=== PATIENT | male | born 1950 | race Caucasian/White ===

== ENCOUNTER → 2018-12-25 11:46 | Outpatient (CLI) | payer MEDICARE, OTHER, SELFPAY ==
--- NOTE | 2018-12-25 11:51 | DI.US.S_ITS ---
PROCEDURE: US ABDOMEN LIMITED INDICATIONS: LEFT INGUINAL PAIN TECHNIQUE: Real-time focused scanning was performed of the inguinal region, with image documentation. COMPARISON: None. FINDINGS: There is a partially reducible fat-containing left inguinal hernia. No findings to suggest bowel herniation. IMPRESSION: Partially reducible fat-containing left inguinal hernia. Dictated by: Rhoda Denney M.D. on 12/25/2018 at 14:35 Approved by: Rhoda Denney M.D. on 12/25/2018 at 14:36
--- NOTE | 2018-12-25 11:51 | DI.US.S_ITS ---
PROCEDURE: US SCROTUM INDICATIONS: EVALUATE FOR HYDROCELE TECHNIQUE: Real-time scanning was performed of the scrotum and testicles, with image documentation. Color and pulse Doppler interrogation was performed of both testicles. COMPARISON: None. FINDINGS: Right: Testicle is normal in size at 5.1 x 3 x 2.9 cm, and homogenous in echotexture. Epididymis is normal in overall size and morphology. There is a mild right-sided hydrocele. A small right-sided varicocele is seen. Overlying scrotal skin is normal in thickness. Left: Testicle is normal in size at 4.6 x 2.8 x 2.5 cm, and homogeneous in echotexture. Epididymis is normal in overall size. There is a 3 mm epididymal body cyst seen. There is a mild left-sided hydrocele and a small left-sided varicocele seen. Mild echogenic debris can be seen within the hydrocele. Overlying scrotal skin is normal in thickness. Doppler: Color and pulse Doppler demonstrate normal and symmetric arterial flow in both testicles. IMPRESSION: A cause of left scrotal swelling is not identified. No significant testicular abnormality can be seen. Mild bilateral hydroceles are seen. Small bilateral varicoceles are seen. Dictated by: Florian Toscano M.D. on 12/26/2018 at 16:04 Approved by: Florian Toscano M.D. on 12/26/2018 at 16:06
== END ==
PROVIDERS: Family Provider Family Medicine; PCP Family Medicine; Visit Provider Surgery
DX: R10.32 Left lower quadrant pain (principal); K40.90 Unilateral inguinal hernia, without obstruction or gangrene, not specified as recurrent; N43.3 Hydrocele, unspecified; I86.1 Scrotal varices
CPT/HCPCS: 76705; 76870; 99214

== ENCOUNTER 2019-01-10 13:00 | Day surgery (SDC) | payer MEDICARE, OTHER, SELFPAY ==
[2019-01-02 13:52] VITALS: BMI 32.6
[2019-01-10] VITALS (7 sets, daily range): BP systolic 123–156; BP diastolic 74–91; PULSE 56–83; RESP 12–18; TEMP 36.4–36.6; O2SAT 93–98; BMI 32.6
--- NOTE | 2019-01-10 | PATH_ITS ---
[facility] Accession Number: [id number] . 01 Material submitted: . scrotum - SCROTAL MASS . 01 Diagnosis: Scrotal Mass, Excision: Mature adipose tissue with fat necrosis and hematoma; please see comment. No evidence of malignancy. MRV/01/17/2019 . 01 Comment: Sections are of mature adipose tissue with areas of fat necrosis and multifocal areas of hematoma, suggestive of prior trauma. A few fibrous bands are present around the periphery and traversing the lesion; however, the stromal spindle cells have no significant nuclear atypia or mitotic activity. Overall, the histologic features are most consistent with a lipoma; however, given the presence of fibrous bands and the large size of the lesion, FISH studies for MDM2 are pending to exclude the less likely possibility of an atypical lipomatous tumor. When available, results will be issued in an addendum. . As part of routine manager quality, Dr. Tillman has reviewed this case and agrees with the above interpretation. . 01 Electronically signed: . Nguyễn Jean MD, PhD, Pathologist NPI- [id number] . 01 Gross description: . Received in formalin, labeled scrotal mass, is a piece of esqueda-yellow rubbery adipose tissue (6.5 x 6.2 x 2.3 cm) with an irregularly firm and hemorrhagic area (4.4 x 2.5 x 1.6 cm). The tissue is inked blue. Administrative Support Manager tissue submitted in cassettes A1-A6. ([id number]) /MRV . 01 Pathologist provided ICD-10: D17.9 . 01 CPT . 915278 Performed at: [address] [facility] [address], [place], [place] [id number] MD Low Higginbotham MD Phone: [phone]
[2019-01-10] MEDS: LACTATED RINGERS 1,000 ML 42 ML IV ×2 (13:50→16:26)
[2019-01-10] MEDS: CEFAZOLIN 2 GM/100 ML FROZ.PIGGY IV (15:05)
--- NOTE | 2019-01-10 15:05 | PM.HP.1 ---
History of Present Illness Date Patient Seen: 01/10/19 Time Patient Seen: 15:05 Chief complaint: [id number] Narrative: Pt seen and examined unchanged since recent clinic note umbilical hernia repair + L inginal repair + L hydroceal repair Patient History Medical History (Updated 01/07/19 @ 09:46 by Lara Elizabeth RN) Diverticulosis (Acute) GERD (gastroesophageal reflux disease) (Acute) Gout (Acute) Hypoglycemia (Acute) Surgical History (Updated 01/07/19 @ 09:49 by Lara Elizabeth RN) History of surgery (Acute 12/23/17) Hx of bilateral cataract extraction (Acute ~2017) Hx of knee surgery (Resolved 02/07/17) Family History (Updated 12/25/18 @ 09:39 by Nathaly Naidu RN) Mother Hypertension Sister Hypertension Brother Hypertension Social History (Updated 12/25/18 @ 09:40 by Nathaly Naidu RN) household members: none occupational status: previously employed Smoking Status: Never smoker alcohol intake: former substance use type: does not use Family & Social History Family History (Updated 12/25/18 @ 09:39 by Nathaly Naidu RN) Mother Hypertension Sister Hypertension Brother Hypertension Social History: household members none Tobacco & Substance use: Smoking Status Never smoker alcohol intake former Substance Use Type does not use Meds Home Medications Medication Instructions Recorded Confirmed Type L.acidophilus-B.infantis-B.bifidum-B.animalis 1 cap PO DAILY 12/25/18 01/10/19 History 5 billion cell capsule ascorbate calcium (vitamin C) 500 500 mg PO DAILY 12/25/18 01/10/19 History mg tablet aspirin 81 mg tablet,delayed 81 mg PO DAILY 12/25/18 01/10/19 History release atenolol 25 mg tablet 25 mg PO DAILY 12/25/18 01/10/19 History colchicine 0.6 mg tablet 1.2 mg PO DAILY 12/25/18 01/10/19 History multivitamin capsule 1 cap PO DAILY 12/25/18 01/10/19 History Allergies Allergy/AdvReac Type Severity Reaction Status Date / Time Penicillins [PENICILLINS] Allergy Unknown hives Verified 01/10/19 13:39 Exam Vital Signs (past 8 hours): - 01/10/19 13:45 Temperature 97.9 F Pulse Rate 56 L Respiratory Rate 16 Blood Pressure 156/91 H Pulse Oximetry 98 Oxygen Delivery Method Room Air
--- NOTE | 2019-01-10 15:36 | SUR.OPER ---
Supine on padded OR bed, head on pillow, arms secured on padded arm boards at <90 degrees abduction, legs uncrossed, safety belt at thigh, tape over blanket over lower legs. Gel pad under heels.
[2019-01-10] MEDS: VANCOMYCIN 1,000 MG VIAL 1000 MG TOP (15:56)
[2019-01-10] MEDS: BUPIVACAINE 0.25% W/ EPI 30 ML VIAL INJ (15:56)
[2019-01-10] MEDS: HYDROMORPHONE 2 MG INJ 0.5 MG IV ×4 (18:25→18:40)
[2019-01-10] MEDS: OXYCODONE/ACETAMINOPHEN 5/325 TABLET 1 TAB PO (18:42)
--- NOTE | 2019-01-10 19:02 | P.OP_ITS ---
Operative Date/Time/Diagnoses Date of procedure: 01/10/19 Time of procedure: 18:59 Pre-op diagnosis: Umbilical hernia, Left inguinal hernia, left hydrocele Post-op diagnosis: other (Umbilical hernia, left large indirect inguinal hernia -with extensive herniation of preperitoneal fat, left scrotal mass, no hydrocele) Procedure & Clinicians Procedure: Umbilical hernia repair with mesh -mesh placed in preperitoneal space Left inguinal hernia repair -anterior mesh repair/Srinath Transinguinal excision of left scrotal mass Same procedure as scheduled: No Indications: 68-year-old man presents with bulging in left scrotum. First developed paresthesias on the left inguinal crease 4-5 months ago. Subjectively felt as if nerve was being pinched with development of moderately large bulge in area. Groin and scrotal US demonstrated inguinal hernia and hydrocele within the left hemiscrotum. Consequently he was taken to the operating room for repair both. In addition he was found to have a 2 x 2 cm umbilical hernia with plans to repair this. Surgeon: Yobany Lopez Click Yes if Unassisted: Yes Anesthesia Type: General Operative Notes Findings: Preperitoneal fat herniated through 2 x 2 cm umbilical defect - transversely closed, mesh placed in preperitoneal space Large indirect inguinal hernia with nearly a entire inguinal floor blown apart - extensive herniation of preperitoneal fat without true hernia sac. Within this fat was a 3 by 3 cm hard nodular mass. Mass distinct from left testicle -imbedded in herniated preperitoneal fat Inguinal floor repaired with suture and buttressed with anterior Srinath type polypropylene mesh repair, majority of preperitoneal fat ligated and removed Closure Type: primary Specimen(s): other (Left scrotal mass) Estimated Blood Loss (mL): 10 Blood products transfused: none Procedure in detail: Patient was brought to the operating room he was prepped and draped in usual sterile fashion a time-out was completed. The entire scrotum and penis were fully prepped but isolated from the main sterile field via a towel. This allowed access if needed -ultimately it was not needed. The procedure was begun by doing an umbilical hernia repair. A curvilinear incision was carried through the skin and subcutaneous tissues at the superior umbilical crown. The umbilical stalk was bluntly dissected around with a curved clamp and then detached from underlying structures. The 2 x 2 cm hernia defect was readily identified. The edge of this was grasped with an Allis clamp and elevated. I carefully entered the preperitoneal space using primarily Bovie dissection. And then opened the preperitoneal space circumferentially around the hernia defect. At no time was the actual peritoneal cavity entered. Using a finger I dissected out a pocket measuring approximately 5 x 5 cm within the preperitoneal space. Next the attenuated fascia at the umbilical ring was excised back to healthy fascia. A Ray-Ross was then placed into the preperitoneal space left for a minute and then removed there was very minimal bleeding confirming hemostasis. Two 0 PDS sutures were then placed at the right and left apex of the hernia defect elevating and pulled to elevate the fascia -a 4.3 x 4.3 cm piece of polypropylene c.qur mesh was then inserted into the preperitoneal space. I ensured that it was fully on rolled without wrinkling. The fascial defect was then closed transversely using interrupted 0 PDS suture in a simple fashion. The central stitch caught the underlying mesh in its middle to prevent migration. The umbilical stalk was then reapproximated to the deep fascia. Skin was closed using 2 layers of 2 0 Vicryl followed by running subcuticular suture of monofilament absorbable suture Then proceeded to the inguinal region -on the left side AA obliquely oriented incision was placed 2 finger breaths above the a inguinal ligament. This is was carried through the skin subcutaneous tissues through Tom's fascia until the aponeurosis of the external oblique was encountered. The inguinal canal was readily identified there was a large amount of hernia contents bulging through. The aponeurosis of the external oblique was then stripped of the overlying subcutaneous tissue -it was noted that a large wad of fatty material was exiting the external ring. Local anesthetic was infiltrated into the inguinal canal to hydro dissect tissue planes -a scalpel was utilized to split the fibers of the external oblique and then a Metzenbaum was used to carry this incision for the full length of the inguinal canal opening medially through the external ring. A large amount of fatty hernia contents was identified this was bluntly dissected off of the inguinal floor and encircled with a Tl drain, it was clear that this constituted a very large indirect hernia defect. I then procee ded to to identify the hernia sac-I progressively in carefully dissected through these herniated contents identifying the vas deferens and spermatic vessels and keeping these well preserved. Ultimately in the course of this the entire contents of the hernia was reduced out of the scrotum. I initially felt that I had likely brought the testicle up into the operative field as a felt a testicle size mass within the fighting contents of the hernia contents. However I distinctly noticed that the vas deferens and spermatic vessels did not lead to this mass but rather deep into the scrotum -I follow these vessels and identified the true testicle in the anatomic location in the left hemiscrotum. I confirmed the presence of the right testicle in the anatomic location as well. With this in mind day more carefully inspected the scrotal mass -it was hard and nodular obviously distinct from the testicle. It may have constitute a piece of fibrous ischemic fat. Nevertheless I it with its adjacent fatty tissue from the dissection plane and sent for pathology. After the spermatic cord and spermatic vessels from the fatty contents -I determined that the large herniated fatty contents likely constituted a sizable amount of herniated preperitoneal fat. I then proceeded to carefully clamp across this contents amputating it from near the location where it exited from the internal ring. These clamps were then ligated with 0 Vicryl. This allowed the remaining stub of fibrofatty tissue to be reduced without difficulty through the internal ring leaving the skeletonized spermatic vessels and vas deference and some residual cremaster fibers exiting through the internal ring. I then proceeded to reconstruct the inguinal floor utilizing a running 2 0 Vicryl suture essentially buttressing the transversalis muscles in the course of this I snugged the internal ring so that the reduced fatty contents would not reherniation during the course of placing the mesh. I then proceeded to place regular weight polypropylene mesh within the space deep to the aponeurosis of the external oblique and superficial to the conjoint tendon -lateral tails were produced to wrap around the cord structure. The medial aspect of the mesh was then sutured to the pubic tubercle utilizing 2 0 Prolene with over 1 cm of medial overlap. The shelving edge was then ran the utilizing the suture to well lateral of the internal ring. The lateral tails encircled the ring snugly but not unduly tight and sutured to themselves using horizontal mattress suture x2 of 0 Prolene. The superior edge of mesh was then sutured with PDS interrupted sutures x3 to the conjoint tendon -these were tied with an air knot so as to not encircle tightly any nerves. The mesh was inspected found to be not unduly wrinkled. Vancomycin laced irrigation was then used copiously. Local anesthetic was infiltrated into the tissue plans. Then proceeded to close external oblique aponeurosis over the repair utilizing 2 0 Vicryl suture. Several interrupted Vicryl sutures were used to reapproximate Tom's fascia. Skin was then closed using 2 layers 1 of 2 0 Vicryl suture deep dermal interrupted some as well as running subcuticular absorbable suture. Skin glue was applied to all wounds The patient was extubated and brought to PACU without incident Complications: none Condition: stable Disposition: PACU Plan for aftercare: Discharge home follow-up in the office
--- NOTE | 2019-01-10 19:51 | SUR.PHASEII ---
patient up ambulatory in department, tolerating acitivity without increased pain. instructions reviewed with patient and sister.
== END 2019-01-10 18:46 | disposition home or self-care (01) ==
PROVIDERS: PCP Family Medicine; Visit Provider Surgery
PROC: (CPT 49505; principal; 2019-01-10 14:30)
PROC: (CPT 49505; 2019-01-10 14:30)
DX: K42.9 Umbilical hernia without obstruction or gangrene (principal); K40.30 Unilateral inguinal hernia, with obstruction, without gangrene, not specified as recurrent
CPT/HCPCS: 49505; 49585; 88305; C1781; J0330; J0690; J1100; J1170; J2405; J2704; J3010

== ENCOUNTER → 2019-01-14 13:56 | Outpatient (CLI) | payer MEDICARE, OTHER, SELFPAY ==
--- NOTE | 2019-01-14 | DI.RAD.S_ITS ---
PROCEDURE: XR SHOULDER LT MIN 2V INDICATIONS: PAIN/SHOULDER IMINGEMENT SYNDROME TECHNIQUE: 3 views of the shoulder were acquired. COMPARISON: None. FINDINGS: Bones: No fractures or dislocations. No suspicious bony lesions. Visualized ribs appear intact. Soft tissues: No suspicious soft tissue calcifications. IMPRESSION: No acute osseous abnormality of the left shoulder. Dictated by: Jayme Booker M.D. on 01/14/2019 at 15:19 Approved by: Jayme Booker M.D. on 01/14/2019 at 15:21
--- NOTE | 2019-01-14 | DI.RAD.S_ITS ---
PROCEDURE: XR SHOULDER RT MIN 2V INDICATIONS: PAIN/SHOULDER IMINGEMENT SYNDROME TECHNIQUE: 3 views of the shoulder were acquired. COMPARISON: [facility], CR, XR SHOULDER LT MIN 2V, 01/14/2019, 13:59. FINDINGS: Bones: No fractures or dislocations. No suspicious bony lesions. Visualized ribs appear intact. Soft tissues: No suspicious soft tissue calcifications. IMPRESSION: No acute osseous abnormality of the right shoulder. Dictated by: Jayme Booker M.D. on 01/14/2019 at 15:21 Approved by: Jayme Booker M.D. on 01/14/2019 at 15:22
== END ==
PROVIDERS: PCP Family Medicine; Visit Provider Family Medicine
DX: M75.41 Impingement syndrome of right shoulder (principal); M75.42 Impingement syndrome of left shoulder; M25.512 Pain in left shoulder; M25.511 Pain in right shoulder
CPT/HCPCS: 73030

== ENCOUNTER 2019-02-22 12:00 | Outpatient (RCR) | payer MEDICARE, OTHER, SELFPAY ==
--- NOTE | 2019-02-08 17:00 | PT.OIE ---
Current Diagnoses Benign paroxysmal vertigo, left ear (02/08/19) Dizziness and giddiness (02/08/19) Past Medical History (Last Updated 01/07/19 @ 09:46 by Lara Elizabeth RN) Diverticulosis (Acute) GERD (gastroesophageal reflux disease) (Acute) Gout (Acute) Hypoglycemia (Acute) Past Surgical History (Last Updated 01/07/19 @ 09:49 by Lara Elizabeth RN) History of surgery (Acute 12/23/17) Hx of bilateral cataract extraction (Acute ~2016) Hx of knee surgery (Resolved 02/07/17) Visit Care Team Role Provider Type Cordell Schmitz MD Attending Provider Physician Primary Care Provider Specialty: [facility] Address: [address] [place] [address] [place], [facility] Email: [email or web address] [facility] Initial Evaluation PT-OP-A Visit Information Start: 02/08/19 15:48 Freq: Status: Active Protocol: Document 02/08/19 14:50 DCW (Rec: 02/08/19 16:00 DCW [id number]) Out-Patient Physical Therapy Visit Information Visit Information Visit Type Initial Evaluation Visit Start Time 14:50 Visit Stop Time 15:40 Total Visit Minutes 50 Visit Number 1 Number of COLLECTIONS ASSISTANT Visits 0 Evaluation Information Evaluation Date 02/08/19 PT-OP-B Current Condition Start: 02/08/19 15:48 Freq: Status: Active Protocol: Document 02/08/19 14:50 DCW (Rec: 02/08/19 16:00 DCW [id number]) Current Condition History of Current Condition Onset Date 3 weeks Current Complaints position-dependent vertigo History of Current Condition Pt is a 68 year old male complaining of a three week history of motion-induced vertigo and generalized, low- level imbalance. Pt reports episodes last about a minute. Symptoms are provoked by bending forward, rolling over in bed to the left, and sudden movements. Pt reports he has done research online, and tried to do an Ford maneuver on himself, but that just made it worse. Pt notes that he had similar symptoms six years ago, which seemed to eventually go away on its own , but he doesn't want to wait that long again. Pt denies recent hearing changes, tinnitus, diplopia, dysarthria , discoordination, or decreased mentation/ consciousness. Pt reports symptoms are waxing/waning in nature. Pt denies hx of hyperlipidemia, diabetes, arrhythmia, head trauma, seizure, migraines, back/neck problems, CVA, anxiety/panic disorders, or excessive smoking. 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 Treatment Goals Patient/Caregiver Goals Stop this dizziness before it gets worse. PT-OP-C Subjective Start: 02/08/19 15:48 Freq: Status: Active Protocol: Document 02/08/19 14:50 DCW (Rec: 02/08/19 16:00 DCW [id number]) OP-PT Subjective Patient Comments Patient Comments I've tried to do the Ford maneuver I found online, but it isn't working. I think I made it worse. Patient Reported Progress Worse Patient Questionnaires Dizziness Handicap Inventory DHI Score 56% DHI Functional Impairment 40 to 59% Impaired (Score 40- 59) OP-PT Pain Assessment Pain Assessment Grid Paper Pain Assessment Grid Completed Yes: N/A PT-OP-O Vestibular Start: 02/08/19 15:48 Freq: Status: Active Protocol: Document 02/08/19 14:50 DCW (Rec: 02/08/19 16:00 DCW [id number]) Vestibular Assessment Screening Tests Vestibular Artery Screen Negative Auditory Tests Carter Test Negative Rinne Test Negative Air Conduction Results Equal Visual Testing Smooth Pursuits Horizontal WNL Smooth Pursuits Vertical WNL Saccades Horizontal WNL Saccades Vertical WNL Gaze Evoked Nystagmus With Fixation Negative Gaze Evoked Nystagmus Without Fixation Negative Heave Test Positive Bilateral Thrust Head Positive Bilateral Head Shake Negative Spontaneous Nystagmus Negative Positional Testing Toi-Hallpike Negative Left,Negative Right Rolling Test Negative Left,Negative Right Supine to Sit Negative Sit to Supine Negative Comments Vestibular Comments Thrust/Heave tests mildly positive bilaterally. PT-OP-Q Treatments Start: 02/08/19 15:48 Freq: Status: Active Protocol: Document 02/08/19 14:50 DCW (Rec: 02/08/19 16:59 DCW [id number]) Canalithic Repositioning BPPV Treatment Ford Affected Canal(s) L Posterior? Reps x1 PT-OP-T Assessment and Plan Start: 02/08/19 15:48 Freq: Status: Active Protocol: Document 02/08/19 14:50 DCW (Rec: 02/08/19 16:59 DCW [id number]) Physical Therapy Assessment Rehab Potential Rehabilitation Potential Excellent Evaluation Complexity Number of Personal Factors/Comorbidities 1-2 Number of Body Systems Impaired 1-2 Clinical Presentation at Evaluation Unstable Impairments Impairments Balance,Vestibular Goals Two Impairment Pt scores a 56% on DHI Short Term Goal (STG) Pt to score <20% on DHI to indicate objective decrease in symptoms STG Duration 03/11/19 One Impairment Dizziness with position change Short Term Goal (STG) Pt to be able to roll onto his left side in bed without vertigo STG Duration 03/11/19 Assessment Summary Assessment Pt's vestibular assessment was entirely negative, with the exception of a mildly bilaterally positive thrust and heave test, which is likely associated with age- related vestibular loss. Pt's history, however, is strongly suggestive of left-sided BPPV. Despite pt's reports of attempting an Ford maneuver at home and experiencing a worsening of symptoms, when pt demonstrated his technique, it was clear he was actually just repeatedly performing a [place]-Hallpike on himself. Due to the waxing/waning nature of BPPV, it is very possible he in fact does have BPPV, and is just not displaying symptoms at this time. With pt's complaints of worsening symptoms when rolling to the left, and the fact that posterior canal BPPV is much more common than any other canal, a left-sided Ford maneuver was performed, which hopefully will treat pt's symptoms, however he will likely benefit from further testing. Pt was educated on BPPV, expectations for treatment, possible recurrence (BPPV has a ~50% recurrence rate in the five years following treatment), and post -Ford restrictions. Pt to return in ~1 week for a follow -up appointment, and intermittently afterward as indicated for treatment of BPPV. Physical Therapy Plan Frequency and Duration Frequency of Treatment as indicated Duration of Treatment 6 weeks Plan of Care Start Date 02/08/19 Plan of Care End Date 03/22/19 Therapeutic Interventions Therapeutic Interventions Balance Training,Canalithic Repositioning,Vestibular Rehabilitation Next Visit Focus/Plan Next Note Type Treatment Note Next Visit Plan Position testing, CRM as indicated, further balance testing as needed
--- NOTE | 2019-02-08 17:00 | PT.OPPOC ---
Current Diagnoses Benign paroxysmal vertigo, left ear (02/08/19) Dizziness and giddiness (02/08/19) Visit Care Team Role Provider Type Cordell Schmitz MD Attending Provider Physician Primary Care Provider Specialty: Family Practice Address: [address] [place] [address], [address], [place], [address] Email: [email or web address] Plan Of Care PT-OP-T Assessment and Plan Start: 02/08/19 15:48 Freq: Status: Active Protocol: Document 02/08/19 14:50 DCW (Rec: 02/08/19 16:59 DCW [id number]) Physical Therapy Assessment Rehab Potential Rehabilitation Potential Excellent Evaluation Complexity Number of Personal Factors/Comorbidities 1-2 Number of Body Systems Impaired 1-2 Clinical Presentation at Evaluation Unstable Impairments Impairments Balance,Vestibular Goals Two Impairment Pt scores a 56% on DHI Short Term Goal (STG) Pt to score <20% on DHI to indicate objective decrease in symptoms STG Duration 03/11/19 One Impairment Dizziness with position change Short Term Goal (STG) Pt to be able to roll onto his left side in bed without vertigo STG Duration 03/11/19 Assessment Summary Assessment Pt's vestibular assessment was entirely negative, with the exception of a mildly bilaterally positive thrust and heave test, which is likely associated with age- related vestibular loss. Pt's history, however, is strongly suggestive of left-sided BPPV. Despite pt's reports of attempting an Ford maneuver at home and experiencing a worsening of symptoms, when pt demonstrated his technique, it was clear he was actually just repeatedly performing a Toi-Hallpike on himself. Due to the waxing/waning nature of BPPV, it is very possible he in fact does have BPPV, and is just not displaying symptoms at this time. With pt's complaints of worsening symptoms when rolling to the left, and the fact that posterior canal BPPV is much more common than any other canal, a left-sided Ford maneuver was performed, which hopefully will treat pt's symptoms, however he will likely benefit from further testing. Pt was educated on BPPV, expectations for treatment, possible recurrence (BPPV has a ~50% recurrence rate in the five years following treatment), and post -Ford restrictions. Pt to return in ~1 week for a follow -up appointment, and intermittently afterward as indicated for treatment of BPPV. Physical Therapy Plan Frequency and Duration Frequency of Treatment as indicated Duration of Treatment 6 weeks Plan of Care Start Date 02/08/19 Plan of Care End Date 03/22/19 Therapeutic Interventions Therapeutic Interventions Balance Training,Canalithic Repositioning,Vestibular Rehabilitation Next Visit Focus/Plan Next Note Type Treatment Note Next Visit Plan Position testing, CRM as indicated, further balance testing as needed Plan of Care Dates Plan of Care Start Date 02/08/19 Plan of Care End Date 03/22/19 Please Sign and Return: I have reviewed this Plan of Care and certify that the skilled therapy services above are required to meet the patient?s needs. Physician Signature Date Printed Name and Credentials Clinical Instructor Signature Printed Name and Credentials
--- NOTE | 2019-02-22 12:20 | PT.OTN ---
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 Pt reports episodes last about a minute. Symptoms are provoked by bending forward, rolling over in bed to the left, and sudden movements. Pt reports he has done research online, and tried to do an Ford maneuver on himself, but that just made it worse. Pt notes that he had similar symproms six years ago, which seemed to eventually go away on its own , but he doesn't want to wait that long again. Pt denies recent hearing changes, tinnitus, diplopia, dysarthria , discoordination, or decreased mentation/ consciousness. Pt reports symptoms are waxing/waning in nature. Pt denies hx of hyperlipidemia, diabetes, arrhythmia, head trauma, seizure, migraines, back/neck problems, CVA, anxiety/panic disorders, or excessive smoking. 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 Treatment Goals Patient/Caregiver Goals Stop this dizziness before it gets worse. PT-OP-C Subjective Start: 02/08/19 15:48 Freq: Status: Active Protocol: Document 02/22/19 12:00 DCW (Rec: 02/22/19 12:19 DCW [id number]) OP-PT Subjective Patient Comments Patient Comments I still got just a little bit , but it's so close to being gone. I'd say I'm at 98%. PT-OP-O Vestibular Start: 02/08/19 15:48 Freq: Status: Active Protocol: Document 02/22/19 12:00 DCW (Rec: 02/22/19 12:19 DCW [id number]) Vestibular Assessment Positional Testing Toi-Hallpike Negative Left,Negative Right Rolling Test Negative Left,Negative Right Supine to Sit Negative Sit to Supine Negative PT-OP-Q Treatments Start: 02/08/19 15:48 Freq: Status: Active Protocol: Document 02/22/19 12:00 DCW (Rec: 02/22/19 12:19 DCW [id number]) Canalithic Repositioning BPPV Treatment Ford Affected Canal(s) L Posterior? Reps x1 PT-OP-T Assessment and Plan Start: 02/08/19 15:48 Freq: Status: Active Protocol: Document 02/22/19 12:00 DCW (Rec: 02/22/19 12:19 DCW [id number]) Physical Therapy Assessment Impairments Impairments Balance,Vestibular Goals Two Impairment Pt scores a 56% on DHI Short Term Goal (STG) Pt to score <20% on DHI to indicate objective decrease in symptoms STG Duration 03/11/19 One Impairment Dizziness with position change Short Term Goal (STG) Pt to be able to roll onto his left side in bed without vertigo STG Duration Met Assessment Summary Assessment Pt positional testing once again entirely negative. With pt reports of feeling 98% better, as well as his comfort performing a self-Ford with and symptoms, pt will likely be okay to discharge at this time, however therapist and patient decided to leave pt's chart open for one month in case symptoms change or worsen , pt then instructed to schedule a follow-up visit. If pt has not returned within one month, he will be discharged. Physical Therapy Plan Frequency and Duration Frequency of Treatment as indicated Duration of Treatment 6 weeks Plan of Care Start Date 02/08/19 Plan of Care End Date 03/22/19 Therapeutic Interventions Therapeutic Interventions Balance Training,Canalithic Repositioning,Vestibular Rehabilitation Next Visit Focus/Plan Next Note Type Treatment Note Next Visit Plan Position testing, CRM as indicated, further balance testing as needed
--- NOTE | 2019-04-02 15:14 | PT.OPDS ---
Current Diagnoses Benign paroxysmal vertigo, left ear (02/22/19) Visit Care Team Role Provider Type Cordell Schmitz MD Attending Provider Physician Primary Care Provider Specialty: [facility] Address: [address] [place] [address], [address], [place], [place], [facility] Email: [email or web address] Visit Number Visit Number 2 Discharge Summary PT-OP-B Current Condition Start: 02/08/19 15:48 Freq: Status: Active Protocol: Document 02/08/19 14:50 DCW (Rec: 02/08/19 16:00 DCW [id number]) Current Condition History of Current Condition Onset Date 3 weeks Current Complaints position-dependent vertigo History of Current Condition Pt is a 68 year old male complaining of a three week history of motion-induced vertigo and generalized, low- level imbalance. Pt reports episodes last about a minute. Symptoms are provoked by bending forward, rolling over in bed to the left, and sudden movements. Pt reports he has done research online, and tried to do an Ford maneuver on himself, but that just made it worse. Pt notes that he had similar symproms six years ago, which seemed to eventually go away on its own , but he doesn't want to wait that long again. Pt denies recent hearing changes, tinnitus, diplopia, dysarthria , discoordination, or decreased mentation/ consciousness. Pt reports symptoms are waxing/waning in nature. Pt denies hx of hyperlipidemia, diabetes, arrhythmia, head trauma, seizure, migraines, back/neck problems, CVA, anxiety/panic disorders, or excessive smoking. 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 Treatment Goals Patient/Caregiver Goals Stop this dizziness before it gets worse. PT-OP-C Subjective Start: 02/08/19 15:48 Freq: Status: Active Protocol: Document 02/22/19 12:00 DCW (Rec: 02/22/19 12:19 DCW [id number]) OP-PT Subjective Patient Comments Patient Comments I still got just a little bit , but it's so close to being gone. I'd say I'm at 98%. PT-OP-O Vestibular Start: 02/08/19 15:48 Freq: Status: Active Protocol: Document 02/22/19 12:00 DCW (Rec: 02/22/19 12:19 DCW [id number]) Vestibular Assessment Positional Testing Landers-Hallpike Negative Left,Negative Right Rolling Test Negative Left,Negative Right Supine to Sit Negative Sit to Supine Negative PT-OP-T Assessment and Plan Start: 02/08/19 15:48 Freq: Status: Active Protocol: Document 04/02/19 15:12 DCW (Rec: 04/02/19 15:14 DCW [id number]) Physical Therapy Assessment Goals Two Impairment Pt scores a 56% on DHI Short Term Goal (STG) Pt to score <20% on DHI to indicate objective decrease in symptoms STG Duration 03/11/19 One Impairment Dizziness with position change Short Term Goal (STG) Pt to be able to roll onto his left side in bed without vertigo STG Duration Met Assessment Summary Assessment At the time of his most recent visit, pt was doing very well , and was appropriate for d/c. Pt requested his chart be left open one month in case symptoms changed or worsened. Pt has now not been seen in more than one month, and will be discharged from skilled therapy at this time. Physical Therapy Plan Discharge Physical Therapy Discharge Reasons Goals Met Next Visit Focus/Plan Next Note Type Discharge Summary
== END 2019-04-10 16:29 ==
LOC: PHYS 12:00
PROVIDERS: PCP Family Medicine; Visit Provider Family Medicine
DX: H81.12 Benign paroxysmal vertigo, left ear (principal)
CPT/HCPCS: 95992; 97161; 97535

== ENCOUNTER → 2020-07-16 07:15 | Outpatient (CLI) | payer MEDICARE, OTHER, SELFPAY ==
[2020-07-16 08:39] LABS: Alanine Aminotransferase 25 IU/L (<50); Albumin Globulin Ratio 1.8 (1.0-2.8); Alkaline Phosphatase 52 U/L (38-126); Aspartate Aminotransferase 32 IU/L (17-59); BUN Creatinine Ratio 24.5 (6-22); Bilirubin Total 0.5 mg/dL (0.2-1.3); Blood Urea Nitrogen 25 mg/dL (9-20); Calcium 9.4 mg/dL (8.4-10.2); Carbon Dioxide 33 mmol/L (22-32); Chloride 107 mmol/L (98-107); Cholesterol 172 mg/dL (140-199); Estimated Glomerular Filt Rate > 60.0 mL/min (>60); Globulin 2.2 g/dL (1.7-4.1); Glucose 95 mg/dL (80-110); HDL Cholesterol 47 mg/dL (40-60); HEMOLYSIS < 15 (0-50); LDL Cholesterol Calculated 97 mg/dL (<100); Potassium 4.3 mmol/L (3.4-5.1); Sodium 141 mmol/L (137-145); Total Protein 6.2 g/dL (6.3-8.2); Triglycerides 141 mg/dL (35-150); Uric Acid 7.4 mg/dL (3.5-8.5)
[2020-07-16 11:22] LABS: Creatinine Urine Random 210.4 mg/dL
[2020-07-16 11:33] LABS: Microalbumin Urine Random < 0.6 mg/dL (0-1.6)
== END ==
PROVIDERS: PCP Family Medicine; Referring Provider Family Medicine; Visit Provider Family Medicine
DX: E78.5 Hyperlipidemia, unspecified (principal); I10 Essential (primary) hypertension; M10.9 Gout, unspecified
CPT/HCPCS: 36415; 80053; 80061; 82043; 82570; 84550

== ENCOUNTER → 2020-07-30 17:09 | Outpatient (CLI) | payer MEDICARE, OTHER, SELFPAY ==
--- NOTE | 2020-07-30 17:11 | DI.RAD.S_ITS ---
PROCEDURE: XR SHOULDER LT MIN 2V INDICATIONS: bilateral shoulder pain TECHNIQUE: Three views of the shoulder were acquired. COMPARISON: [facility], CR, XR SHOULDER RT MIN 2V, 01/14/2019, 14:00. FINDINGS: Bones: No fractures or dislocations. Degenerative changes at the glenohumeral joint including subcortical cystic change in the glenoid fossa. No suspicious bony lesions. Visualized ribs appear intact. Soft tissues: No suspicious soft tissue calcifications. IMPRESSION: Mild glenohumeral joint degeneration. Dictated by: Marlene Arceo M.D. on 07/31/2020 at 10:43 Approved by: Marlene Arceo M.D. on 07/31/2020 at 10:43
--- NOTE | 2020-07-30 17:11 | DI.RAD.S_ITS ---
PROCEDURE: XR SHOULDER RT MIN 2V INDICATIONS: bilateral shoulder pain TECHNIQUE: Three views of the shoulder were acquired. COMPARISON: [facility], CR, XR SHOULDER RT MIN 2V, 01/14/2019, 14:00. FINDINGS: Bones: No fractures or dislocations. Mild, chronic AC joint widening without distal clavicle elevation. There is a small ossicle cranial to the joint space. No suspicious bony lesions. Visualized ribs appear intact. Soft tissues: No suspicious soft tissue calcifications. IMPRESSION: Mild, chronic appearing right AC joint widening with minor degenerative change present. Dictated by: Marlene Arceo M.D. on 07/31/2020 at 10:43 Approved by: Marlene Arceo M.D. on 07/31/2020 at 10:45
== END ==
PROVIDERS: PCP Family Medicine; Referring Provider Family Medicine; Visit Provider Family Medicine
DX: M19.012 Primary osteoarthritis, left shoulder (principal); M75.41 Impingement syndrome of right shoulder; M75.42 Impingement syndrome of left shoulder; M25.511 Pain in right shoulder; M25.512 Pain in left shoulder
CPT/HCPCS: 73030

== ENCOUNTER 2020-08-21 12:16 | Emergency (ER) | payer MEDICARE, OTHER, SELFPAY ==
[2020-08-21] VITALS (9 sets, daily range): BP systolic 129–170; BP diastolic 68–100; PULSE 57–75; RESP 14–16; TEMP 36.8; O2SAT 96–100
--- NOTE | 2020-08-21 12:53 | DI.RAD.S_ITS ---
PROCEDURE: XR CHEST 1V INDICATIONS: chest pain TECHNIQUE: One view of the chest was acquired. COMPARISON: None. FINDINGS: Surgical changes and devices: None. Lungs and pleura: Lungs are clear. No pleural effusions or pneumothorax. Mediastinum: Mediastinal contours appear normal. Heart size is normal. Bones and chest wall: No suspicious bony lesions. Overlying soft tissues appear unremarkable. IMPRESSION: No acute cardiopulmonary disease. Dictated by: Chula Melgar M.D. on 08/21/2020 at 14:19 Approved by: Chula Melgar M.D. on 08/21/2020 at 14:19
[2020-08-21 13:20] LABS: Add Manual Diff / Slide Review NO; Basophils Absolute Auto 0 /uL (0-100); Basophils Percent Auto 0.7 % (0-2); Eosinophils Absolute Auto 300 /uL (0-450); Eosinophils Percent Auto 4.7 % (2-4); Hematocrit 40.8 % (41-53); Lymphocytes Absolute Auto 1900 /uL (1100-4500); Lymphocytes Percent Auto 28.2 % (25-40); Mean Corpuscular HGB Conc 34.3 % (30-36); Mean Corpuscular Hemoglobin 30.1 PG (26-34); Mean Corpuscular Volume 87.8 fL (80-100); Monocytes Absolute Auto 700 /uL (0-900); Monocytes Percent Auto 10.3 % (3-14); Neutrophils Absolute Auto 3700 /uL (1500-7000); Neutrophils Percent Auto 56.1 % (50-75); Platelet Count 175 X10^3/uL (150-400); Red Blood Cell Count 4.65 X10^6/uL (4.5-5.9); Red Cell Distribution Width 13.3 % (11.6-14.8); White Blood Cell Count 6.7 X10^3/uL (4.5-11.0)
--- NOTE | 2020-08-21 13:21 | ED.GENADULT ---
HPI - General Adult General Chief complaint: Hypertension Stated complaint: elevated BP per his doctor Time Seen by Provider: 08/21/20 13:20 Source: patient Mode of arrival: Ambulatory Limitations: no limitations History of Present Illness HPI narrative: This is a 69-year-old male comes in with complaint of hypertension, increasing frequency of headaches and new onset tremor. Patient states that he history of hypertension longstanding. He was taking atenolol and his primary care physician changed and wanted to transition him to amlodipine. Patient states that they weaned him off the atenolol and onto the amlodipine but he has been feeling unwell since then. Patient states that he did restart his atenolol 1.5 weeks ago. Patient states he is not on any other regular medications. Patient states at home his blood pressure was 172/112. He has had headaches for about 2 weeks typically they are worse in the morning and resolves the day goes by but they have been present throughout the last 2 days. Patient has been taking aspirin which is somewhat helpful. He denies vision changes, he felt a little dizzy, he zoned jittery. He has noticed new onset tremor. Patient denies chest pain, shortness of breath, no nausea vomiting, no issues with bowel movements, urination no issues with weakness, numbness or tingling. Patient states he has had a hernia, I knee surgery in the past remotely. No tobacco, alcohol or illicit. He has seen a neurologist once in [place] for vertigo symptoms they put him on amitriptyline and clonidine daily. He stopped the clonidine approximately 2-3 months ago. Related Data Home Medications Medication Instructions Recorded Confirmed L.acidophilus-B.infantis-B.bifidum-B.animalis 1 cap PO DAILY 12/25/18 05/04/20 5 billion cell capsule ascorbate calcium (vitamin C) 500 500 mg PO DAILY 12/25/18 05/04/20 mg tablet aspirin 81 mg tablet,delayed 81 mg PO DAILY 12/25/18 05/04/20 release colchicine 0.6 mg tablet 1.2 mg PO DAILY 12/25/18 05/04/20 multivitamin 1 cap PO DAILY 12/25/18 05/04/20 omega-3 fatty acids 1,000 mg 1,000 mg PO DAILY 05/04/20 05/04/20 capsule turmeric root extract 500 mg 1,000 mg PO DAILY 07/30/20 07/30/20 capsule Previous Rx's Medication Instructions Recorded acetaminophen 1,000 mg PO Q6H #30 tab 01/10/19 amlodipine 5 mg tablet 5 mg PO DAILY #90 tab 07/30/20 Allergies Allergy/AdvReac Type Severity Reaction Status Date / Time Penicillins [PENICILLINS] Allergy Unknown hives Verified 07/30/20 16:28 Review of Systems Review of Systems ROS Unobtainable: All systems reviewed & are unremarkable except as noted in HPI and below Patient History Medical History Diverticulosis GERD (gastroesophageal reflux disease) Gout Hyperlipidemia Hypertension Hypoglycemia Vertigo Surgical History History of surgery (12/23/17) Hx of bilateral cataract extraction (~2016) Hx of knee surgery (02/07/17) Family History Mother Hypertension Sister Hypertension Brother Hypertension Social History household members: none occupational status: previously employed Smoking Status: Never smoker alcohol intake: former substance use type: does not use Smoking Status: Never smoker Substance Use Type: does not use Exam Narrative Exam Narrative: GEN: well nourished, well appearing male, alert and oriented x 3, patient appears to be in mild distress. HEENT: Atraumatic, pupils are equal round reactive to light, extraocular movements are intact, mild nystagmus nares are clear, TMs are clear with no fluid, there is no conjunctival pallor. Throat is clear without any exudates, erythema, tonsillar enlargement or uvular deviation, no facial droop. Tremors visualized particularly when patient puff his cheeks. HEART: Regular rate and rhythm without murmur, clicks, rubs. Pulses are equal in upper and lower extremities LUNGS:Lungs clear to auscultation, no wheezes, rales, crackles, chest moves symmetrically ABD:bowel sounds normal, soft, non-tender, no guarding, rebound, rigidity, no masses noted, no hepatosplenomegaly :No CVA tenderness MSCL: Non-tender, no muscle atrophy, muscles strength 5/5 upper and lower extremities, full range of motion NEURO:CN 2-12 intact, sensation normal, patient is very mildly hyperreflexic bilateral lower extremities, 2/4 bilateral upper extremities. finger nose finger test normal, heel shipman test normal. SKIN: Rash, erythema or other skin changes appreciated. Initial Vital Signs Initial Vital Signs: Vital Signs Temperature 98.2 F 08/21/20 12:21 Pulse Rate 70 08/21/20 12:21 Respiratory Rate 14 08/21/20 12:21 Blood Pressure 170/82 H 08/21/20 12:21 Pulse Oximetry 99 08/21/20 12:21 Scores GCS [place] coma scale eye opening: Spontaneous [place] coma scale verbal response: Orientated [place] coma scale motor response: Obey commands Ang coma scale total score: 15 Course Orders Ordered: ED Orders 08/21/20 12:53 XR chest 1V Stat EKG-12 Lead Stat 08/21/20 13:05 Complete Blood Count AUTO DIFF Stat Comprehensive Metabolic Panel Stat Lipase Stat Magnesium Stat Partial Thromboplastin Time Stat Prothrombin Time INR Stat Troponin & CK Cardiac Panel Stat 08/21/20 13:54 CT head/brain wo/w con Stat 08/21/20 15:03 CT angio head and neck Stat Discontinued Medications Acetaminophen (Acetaminophen 325 Mg Tablet) 975 mg PO NOW ONE Stop: 08/21/20 13:55 Last Admin: 08/21/20 14:04 Dose: 975 mg Documented by: GURINDER Sodium Chloride (Normal Saline 0.9%) 1,000 mls @ 1,000 mls/hr IV BOLUS ONE Stop: 08/21/20 14:38 Last Infusion: 08/21/20 14:38 Dose: 0 mls/hr Documented by: Admin: 08/21/20 13:44 Dose: 1,000 mls/hr Documented by: GURINDER Reevaluation(s) Reevaluation #1: patient and I reviewed labs and findings and neurologist recomendations for angiography. Patient is willing at this time. Time: 15:13 Reevaluation #2: Patient requesting to return home. Angiography is negative but Radiology does note pneumonia type pattern on the long portion of the CT a and asked if patient has had any COVID symptoms. They states this could be a COVID pattern versus bacterial. Patient states he has been asymptomatic except for a month ago he had a fever and upper respiratory cold symptoms. Patient states he is asymptomatic at this time. He defers any COVID testing at this time. We discussed and will hold off on any antibiotics or treatment is patient's symptoms have resolved in the past month. He does continue have nortriptyline at home he also has a Klonopin prescription. He will follow up with Neurology return precautions were discussed. Time: 16:44 Consultations Consultation #1: Neurology in [facility]. Time: 14:56 Vital Signs Vital signs: Vital Signs - 8 hr 08/21/20 12:21 08/21/20 13:08 08/21/20 13:30 Temperature 98.2 F Pulse Rate 70 71 61 Respiratory Rate 14 Blood Pressure 170/82 H 140/100 H Pulse Oximetry 99 97 96 08/21/20 13:31 08/21/20 14:06 08/21/20 14:07 Temperature Pulse Rate 61 75 72 Respiratory Rate Blood Pressure 129/68 158/84 H Pulse Oximetry 96 99 100 08/21/20 14:30 08/21/20 15:00 08/21/20 16:54 Temperature Pulse Rate 63 57 L 65 Respiratory Rate 16 Blood Pressure 138/74 139/77 140/88 Pulse Oximetry 98 96 98 Medical Decision Making Lab Data Lab results reviewed: Yes I reviewed the patient's lab results. Result diagrams: 08/21/20 13:05 08/21/20 13:05 Labs: Lab Results 08/21/20 08/21/20 08/21/20 Range/Units 13:05 13:05 13:05 WBC 6.7 (4.5-11.0) X10^3/uL RBC 4.65 (4.5-5.9) X10^6/uL Hgb 14.0 (13.5-17.5) g/dL Hct 40.8 L (41-53) % MCV 87.8 (80-100) fL MCH 30.1 (26-34) PG MCHC 34.3 (30-36) % RDW 13.3 (11.6-14.8) % Plt Count 175 (150-400) X10^3/uL Neut % (Auto) 56.1 (50-75) % Lymph % (Auto) 28.2 (25-40) % Gray % (Auto) 10.3 (3-14) % Eos % (Auto) 4.7 H (2-4) % Baso % (Auto) 0.7 (0-2) % Neut # (Auto) 3700 (0766-2391) /uL Lymph # (Auto) 1900 (0820-6767) /uL Gray # (Auto) 700 (0-900) /uL Eos # (Auto) 300 (0-450) /uL Baso # (Auto) 0 (0-100) /uL PT 12.7 (10.1-12.7) SECONDS INR 1.1 (0.9-1.3) APTT 32 (26.4-36.2) SECONDS Sodium 139 (137-145) mmol/L Potassium 5.4 H (3.4-5.1) mmol/L Chloride 109 H (98-107) mmol/L Carbon Dioxide 23 (22-32) mmol/L BUN 28 H (9-20) mg/dL Creatinine 0.77 (0.66-1.25) mg/dL Estimated GFR > 60.0 (>60) mL/min BUN/Creatinine Ratio 36.4 H (6-22) Glucose 130 H (80-110) mg/dL Calcium 9.3 (8.4-10.2) mg/dL Magnesium 2.0 (1.6-2.3) mg/dL Total Bilirubin 1.0 (0.2-1.3) mg/dL AST 53 (17-59) IU/L ALT 27 (<50) IU/L Alkaline Phosphatase 46 (38-126) U/L Total Creatine Kinase 117 (55-170) U/L CK-MB (CK-2) 1.78 (<2.37) ng/mL CK-MB (CK-2) Rel Index 1.5 (1.5-5.0) % Troponin I < 0.012 (0.01-0.034) ng/mL Total Protein 7.0 (6.3-8.2) g/dL Albumin 4.1 (3.5-5.0) g/dL Globulin 2.9 (1.7-4.1) g/dL Albumin/Globulin Ratio 1.4 (1.0-2.8) Lipase 131 (23-300) U/L Imaging Data Chest x-ray: Radiologist's Impression: [address] [id number] ReportSigned Patient: Taye Lopez AMR#: [id number]: 1950cct:[id number]/Sex: 69 / MDate of Service: 08/21/20Lo: EDAccession Number: [id number] Procedure: XR chest 1V Ordering Provider: Any Perea D.O. PROCEDURE: XR CHEST 1V INDICATIONS: chest pain TECHNIQUE: One view of the chest was acquired. COMPARISON: None. FINDINGS: Surgical changes and devices: None. Lungs and pleura: Lungs are clear. No pleural effusions or pneumothorax. Mediastinum: Mediastinal contours appear normal. Heart size is normal. Bones and chest wall: No suspicious bony lesions. Overlying soft tissues appear unremarkable. IMPRESSION: No acute cardiopulmonary disease. Dictated by: Chula Melgar M.D. on 08/21/2020 at 14:19 Approved by: Chula Melgar M.D. on 08/21/2020 at 14:19 CT scan - head: Radiologist's Impression: [address] [id number] Scan ReportSigned Patient: Taye Lopez AMR#: [id number]: 1950cct:[id number]/Sex: 69 / MDate of Service: 08/21/20Lo: EDAccession Number: [id number] Procedure: CT head/brain wo/w con Ordering Provider: Any Perea D.O. PROCEDURE: CT HEAD/BRAIN WO/W CON INDICATIONS: increasing headaches, hypertension, new onset tremor TECHNIQUE: 4.5 mm thick angled axial sections acquired from the foramen magnum to the vertex both before and after the administration of intravenous contrast, with coronal and sagittal reformats. For radiation dose reduction, the following was used: automated exposure control, adjustment of mA and/or kV according to patient size. COMPARISON: None. FINDINGS: Image quality: Excellent. CSF spaces: Basal cisterns are patent. No extra-axial fluid collections. Ventricles are symmetric in size and shape. Brain: No midline shift. No intracranial bleeds or masses. No abnormal intracranial enhancement. There is cerebral volume loss for age. There is periventricular white matter chronic small vessel ischemic change. There is intracranial internal carotid artery atherosclerosis. Skull and face: Calvarium and visualized facial bones appear intact, without suspicious lesions. Sinuses: Visualized sinuses and mastoids are clear. IMPRESSION: 1. No CT evidence of acute intracranial pathology. No area of abnormal contrast enhancement. 2. Mild periventricular and deep white matter chronic small vessel ischemic changes. Dictated by: Cameron Covarrubias M.D. on 08/21/2020 at 14:15 Approved by: Cameron Covarrubias M.D. on 08/21/2020 at 14:17 CTA - brain/neck: Radiologist's Impression: [address] [id number] Scan ReportSigned Patient: Taye Lopez AMR#: [id number]: 1950cct:[id number]/Sex: 69 / MDate of Service: 08/21/20Loc: EDAccession Number: [id number] Procedure: CT angio head and neck Ordering Provider: Any Perea D.O. PROCEDURE: CT ANGIO HEAD AND NECK INDICATIONS: neurology request. gilliland, tremor, vertigo TECHNIQUE: After the administration of intravenous contrast, 1 mm thick sections acquired from the aortic arch through the [place] of Varg[place]. Post-contrast 4.5 mm thick sections then re-acquired from the foramen magnum to the vertex. 3-dimensional nlqciys-aiaqdjbsy-zrzvdvsqzp (MIP) and/or volume rendering reformats were acquired of the central intracranial vasculature and neck separately. COMPARISON: [facility], CR, XR CHEST 1V, 08/21/2020, 13:07. [facility], CT, CT HEAD/BRAIN WO/W CON, 08/21/2020, 13:57. FINDINGS: Image quality: Excellent. BRAIN: CSF spaces: Ventricles are normal in size and shape. Basal cisterns are patent. No extra-axial fluid collections. Brain: No midline shift. No intracranial bleeds or masses. [place]-white matter interface appears intact. Skull and face: Calvarium and facial bones appear intact, without suspicious lesions. Orbits appear normal. Sinuses: Sinuses and mastoids are clear. HEAD CT ANGIOGRAPHY: Anterior circulation: Intracranial internal carotid arteries are normal in size and flow. The flow within the paired anterior cerebral arteries is normal and symmetric. The flow within the middle cerebral arteries is normal and symmetric. The anterior communicating artery is seen. No aneurysms are seen. Posterior circulation: Visualized portions of the vertebral arteries demonstrate normal caliber, and join to form a normal appearing basilar artery. Flow within the posterior cerebral arteries is normal and symmetric. No aneurysms are seen. NECK CT ANGIOGRAPHY: Carotid system: The great vessels demonstrate a conventional anatomy as they arise from the aortic arch. The origins of the common carotid arteries appear patent. The common carotid arteries demonstrate normal caliber and courses. The bifurcation regions are both widely patent. The internal carotid arteries demonstrate normal calibers and courses. Posterior circulation: The origins of the vertebral arteries both appear widely patent. The more superior extracranial portions of both vertebral arteries also demonstrate normal courses and calibers. They join to form a normal appearing basilar artery. Soft tissues: Visualized neck soft tissues demonstrate no suspicious abnormalities. Bilateral patchy infiltrates in upper lobes. There are may be bibasilar consolidations. The CT findings are suspected bilateral pneumonia. Mild mediastinal and hilar lymphadenopathy. Mild coronary artery calcification. Bones: No suspicious bony lesions. Visualized cervical spine appears normally aligned. IMPRESSION: 1. No acute intracranial abnormalities. 2. No hemodynamic significant stenosis in anterior or posterior circulations. 3. No hemodynamic significant stenosis in cervical carotid arteries or vertebral arteries bilaterally. 4. Bilateral pneumonia. 5. Mild mediastinal and hilar lymphadenopathy, most likely reactive. Recommend clinical correlation and imaging follow-up. The result was discussed with Dr. Perea. Any quantitative measurements of stenosis were performed using NASCET criteria. Dictated by: Chula Melgar M.D. on 08/21/2020 at 16:23 Approved by: Chula Melgar M.D. on 08/21/2020 at 16:33 ECG Data Attestation: I personally reviewed and interpreted this ECG as follows: Prior ECG tracings: available for review Interpretation: Sinus rhythm rate of 64, KS interval 180 QRS of 92 and QTC of 422. No acute ST changes appreciated. MDM Narrative Medical decision making narrative: This is a 69-year-old male comes emergency department with complaint of hypertension, headaches which have been increasing in frequency for the last 2 weeks and 2 days of mild tremor. Patient neuro exam does reflect generalized tremor which he states is. This was concerning with this constellation symptoms and CT head with and without contrast was ordered and is not showing any acute changes. Patient has slightly elevated potassium was given fluids but this is unlikely causes he is only mildly elevated. Patient's case was discussed with his neurologist who has he seen for vertigo in the past. Patient did note that he had some symptoms walking to the CT scanner. His neurologist states that it is likely a vestibular migraine they do recommend angiogram to evaluate for tear yell insufficiency. Patient has stopped his nortriptyline 20 mg nightly, continue his atenolol for blood pressure control. Patient is comfortable with this plan. His angiography did note some patchy infiltrate which may be a COVID pattern versus bacterial. Patient had symptoms approximately a month ago which have since resolved. He defers any COVID testing and this he continues to be asymptomatic otherwise we did not start antibiotics. Discharge Plan Departure Patient Disposition: Home Clinical Impression: Vestibular migraine Activity Restrictions/Additional Instructions: Follow up with your neurologist for recheck, call Monday for an appointment. Your neurologist suspects that you are having vestibular migraines. Restart your nortriptyline at 20mg nightly. Continue your other home medication as prescribed. You may take tylenol up to 1000mg every 8 hours as needed for pain/headache. Return to the ER for fevers, passing out, new or severe headaches, new vision changes, persistent vomiting new weakness, numbness or loss of sensation difficulty walking safely, inability to ambulate safely or other new or concerning symptoms. Prescriptions: No Action omega-3 fatty acids [Fish Oil Concentrate] 1,000 mg capsule 1,000 mg PO DAILY RF: 0 turmeric root extract 500 mg capsule 1,000 mg PO DAILY RF: 0 amlodipine 5 mg tablet 5 mg PO DAILY Qty: 90 RF: 0 colchicine [Colcrys] 0.6 mg tablet 1.2 mg PO DAILY RF: 0 aspirin [Adult Aspirin Regimen] 81 mg tablet,delayed release (DR/EC) 81 mg PO DAILY RF: 0 multivitamin capsule 1 cap PO DAILY RF: 0 ascorbate calcium (vitamin C) 500 mg tablet 500 mg PO DAILY RF: 0 Probiotic Digestive System Sup 5 billion cell capsule 1 cap PO DAILY RF: 0 acetaminophen 500 mg tablet 1,000 mg PO Q6H Qty: 30 RF: 0 Referrals: Chan Sheffield MD [Primary Care Provider] - Morgan Caldwell MD [Non-Staff] -
[2020-08-21 13:26] LABS: INR 1.1 (0.9-1.3); Prothrombin Time 12.7 SECONDS (10.1-12.7)
[2020-08-21 13:28] LABS: PTT Partial Thromboplastin Tim 32 SECONDS (26.4-36.2)
[2020-08-21 13:31] LABS: Alanine Aminotransferase 27 IU/L (<50); Albumin 4.1 g/dL (3.5-5.0); Albumin Globulin Ratio 1.4 (1.0-2.8); Alkaline Phosphatase 46 U/L (38-126); Aspartate Aminotransferase 53 IU/L (17-59); BUN Creatinine Ratio 36.4 (6-22); Blood Urea Nitrogen 28 mg/dL (9-20); Calcium 9.3 mg/dL (8.4-10.2); Carbon Dioxide 23 mmol/L (22-32); Chloride 109 mmol/L (98-107); Creatine Kinase 117 U/L (55-170); Estimated Glomerular Filt Rate > 60.0 mL/min (>60); Globulin 2.9 g/dL (1.7-4.1); Glucose 130 mg/dL (80-110); Lipase 131 U/L (23-300); Sodium 139 mmol/L (137-145)
[2020-08-21 13:33] LABS: HEMOLYSIS 156 (0-50); Potassium 5.4 mmol/L (3.4-5.1)
[2020-08-21 13:42] LABS: Troponin I < 0.012 ng/mL (0.01-0.034)
[2020-08-21] MEDS: SODIUM CHLORIDE 0.9% 1,000 ML 1000 ML IV (13:44)
[2020-08-21 13:46] LABS: CKMB % Relative Index 1.5 % (1.5-5.0); Creatine Kinase MB 1.78 ng/mL (<2.37)
--- NOTE | 2020-08-21 13:54 | DI.CT.S_ITS ---
PROCEDURE: CT HEAD/BRAIN WO/W CON INDICATIONS: increasing headaches, hypertension, new onset tremor TECHNIQUE: 4.5 mm thick angled axial sections acquired from the foramen magnum to the vertex both before and after the administration of intravenous contrast, with coronal and sagittal reformats. For radiation dose reduction, the following was used: automated exposure control, adjustment of mA and/or kV according to patient size. COMPARISON: None. FINDINGS: Image quality: Excellent. CSF spaces: Basal cisterns are patent. No extra-axial fluid collections. Ventricles are symmetric in size and shape. Brain: No midline shift. No intracranial bleeds or masses. No abnormal intracranial enhancement. There is cerebral volume loss for age. There is periventricular white matter chronic small vessel ischemic change. There is intracranial internal carotid artery atherosclerosis. Skull and face: Calvarium and visualized facial bones appear intact, without suspicious lesions. Sinuses: Visualized sinuses and mastoids are clear. IMPRESSION: 1. No CT evidence of acute intracranial pathology. No area of abnormal contrast enhancement. 2. Mild periventricular and deep white matter chronic small vessel ischemic changes. Dictated by: Cameron Covarrubias M.D. on 08/21/2020 at 14:15 Approved by: Cameron Covarrubias M.D. on 08/21/2020 at 14:17
[2020-08-21] MEDS: ACETAMINOPHEN 325 MG TABLET 975 MG PO (14:04)
--- NOTE | 2020-08-21 15:03 | DI.CT.S_ITS ---
PROCEDURE: CT ANGIO HEAD AND NECK INDICATIONS: neurology request. gilliland, tremor, vertigo TECHNIQUE: After the administration of intravenous contrast, 1 mm thick sections acquired from the aortic arch through the [place] of Varg[place]. Post-contrast 4.5 mm thick sections then re-acquired from the foramen magnum to the vertex. 3-dimensional ytwvwaj-wnbnfexbx-nleocgqcie (MIP) and/or volume rendering reformats were acquired of the central intracranial vasculature and neck separately. COMPARISON: [facility], CR, XR CHEST 1V, 08/21/2020, 13:07. [facility], CT, CT HEAD/BRAIN WO/W CON, 08/21/2020, 13:57. FINDINGS: Image quality: Excellent. BRAIN: CSF spaces: Ventricles are normal in size and shape. Basal cisterns are patent. No extra-axial fluid collections. Brain: No midline shift. No intracranial bleeds or masses. [place]-white matter interface appears intact. Skull and face: Calvarium and facial bones appear intact, without suspicious lesions. Orbits appear normal. Sinuses: Sinuses and mastoids are clear. HEAD CT ANGIOGRAPHY: Anterior circulation: Intracranial internal carotid arteries are normal in size and flow. The flow within the paired anterior cerebral arteries is normal and symmetric. The flow within the middle cerebral arteries is normal and symmetric. The anterior communicating artery is seen. No aneurysms are seen. Posterior circulation: Visualized portions of the vertebral arteries demonstrate normal caliber, and join to form a normal appearing basilar artery. Flow within the posterior cerebral arteries is normal and symmetric. No aneurysms are seen. NECK CT ANGIOGRAPHY: Carotid system: The great vessels demonstrate a conventional anatomy as they arise from the aortic arch. The origins of the common carotid arteries appear patent. The common carotid arteries demonstrate normal caliber and courses. The bifurcation regions are both widely patent. The internal carotid arteries demonstrate normal calibers and courses. Posterior circulation: The origins of the vertebral arteries both appear widely patent. The more superior extracranial portions of both vertebral arteries also demonstrate normal courses and calibers. They join to form a normal appearing basilar artery. Soft tissues: Visualized neck soft tissues demonstrate no suspicious abnormalities. Bilateral patchy infiltrates in upper lobes. There are may be bibasilar consolidations. The CT findings are suspected bilateral pneumonia. Mild mediastinal and hilar lymphadenopathy. Mild coronary artery calcification. Bones: No suspicious bony lesions. Visualized cervical spine appears normally aligned. IMPRESSION: 1. No acute intracranial abnormalities. 2. No hemodynamic significant stenosis in anterior or posterior circulations. 3. No hemodynamic significant stenosis in cervical carotid arteries or vertebral arteries bilaterally. 4. Bilateral pneumonia. 5. Mild mediastinal and hilar lymphadenopathy, most likely reactive. Recommend clinical correlation and imaging follow-up. The result was discussed with Dr. Perea. Any quantitative measurements of stenosis were performed using NASCET criteria. Dictated by: Chula Melgar M.D. on 08/21/2020 at 16:23 Approved by: Chula Melgar M.D. on 08/21/2020 at 16:33
== END 2020-08-21 16:54 | disposition home or self-care (01) ==
PROVIDERS: Emergency Provider Emergency Medicine; PCP Family Medicine
DX: G43.809 Other migraine, not intractable, without status migrainosus (principal); R07.9 Chest pain, unspecified; I10 Essential (primary) hypertension
CPT/HCPCS: 36415; 70470; 70496; 70498; 71045; 80053; 82550; 82553; 83690; 83735; 84484; 85025; 85610; 85730; 93005; 96360; 99284

== ENCOUNTER 2020-08-23 10:40 | Emergency (ER) | payer MEDICARE, OTHER, SELFPAY ==
[2020-08-23] VITALS (20 sets, daily range): BP systolic 115–168; BP diastolic 67–96; PULSE 65–171; RESP 16–31; TEMP 37; O2SAT 90–98; BMI 29.5
[2020-08-23 11:20] LABS: Add Manual Diff / Slide Review NO; Basophils Absolute Auto 100 /uL (0-100); Basophils Percent Auto 1.1 % (0-2); Eosinophils Absolute Auto 100 /uL (0-450); Eosinophils Percent Auto 2.3 % (2-4); Hematocrit 42.3 % (41-53); Hemoglobin 14.8 g/dL (13.5-17.5); Lymphocytes Absolute Auto 1900 /uL (1100-4500); Lymphocytes Percent Auto 32.6 % (25-40); Mean Corpuscular HGB Conc 34.9 % (30-36); Mean Corpuscular Hemoglobin 30.2 PG (26-34); Mean Corpuscular Volume 86.5 fL (80-100); Monocytes Absolute Auto 600 /uL (0-900); Monocytes Percent Auto 9.9 % (3-14); Neutrophils Absolute Auto 3100 /uL (1500-7000); Neutrophils Percent Auto 54.1 % (50-75); Platelet Count 160 X10^3/uL (150-400); Red Blood Cell Count 4.89 X10^6/uL (4.5-5.9); Red Cell Distribution Width 12.8 % (11.6-14.8); White Blood Cell Count 5.8 X10^3/uL (4.5-11.0)
[2020-08-23 11:26] LABS: INR 1.2 (0.9-1.3); Prothrombin Time 13.2 SECONDS (10.1-12.7)
[2020-08-23 11:28] LABS: PTT Partial Thromboplastin Tim 33 SECONDS (26.4-36.2)
[2020-08-23 11:30] LABS: Alanine Aminotransferase 26 IU/L (<50); Albumin 4.3 g/dL (3.5-5.0); Albumin Globulin Ratio 1.6 (1.0-2.8); Alkaline Phosphatase 68 U/L (38-126); Aspartate Aminotransferase 37 IU/L (17-59); BUN Creatinine Ratio 27.2 (6-22); Bilirubin Total 0.9 mg/dL (0.2-1.3); Blood Urea Nitrogen 25 mg/dL (9-20); Calcium 9.2 mg/dL (8.4-10.2); Carbon Dioxide 24 mmol/L (22-32); Chloride 106 mmol/L (98-107); Estimated Glomerular Filt Rate > 60.0 mL/min (>60); Globulin 2.7 g/dL (1.7-4.1); Glucose 107 mg/dL (80-110); HEMOLYSIS < 15 (0-50); Potassium 3.7 mmol/L (3.4-5.1); Sodium 139 mmol/L (137-145)
--- NOTE | 2020-08-23 11:40 | ED.NEUROSD ---
HPI - Neuro Symptoms/Deficit General Chief Complaint: Neuro Symptoms/Deficit Stated Complaint: stroke poss Time Seen by Provider: 08/23/20 10:59 Source: patient Mode of arrival: Ambulatory Limitations: no limitations History of Present Illness HPI Narrative: This is a 69-year-old male who comes emergency department after having been seen by myself 2 days prior. Patient has had progressive worsening tremor and difficulty with balance and ambulation. Patient initially had had a headache that resolved 2 days ago. He has not had any acute vision changes. He and his significant other have noted that his speech has become more difficult and he has been unable to get his words out at times. Patient and his family have also noted that his tremor seems to be more significant and was not present last week to neither democrat. Patient at this point would of had 4 days of tremor he initially noticed in his hands but now notices it throughout his entire body. Patient denies any fevers, no chills. No falls or recent trauma. No chest pain or shortness of breath. He has not had any issues with diarrhea constipation. He does feel like it is difficult to empty his bladder although he is not in discomfort. He states that this seems new. Patient has not appreciated any numbness, tingling or sensation changes. He has not appreciated any lateralized weakness left in comparison to right. Patient denies any nausea or vomiting. He has had vertigo in the past and saw Dr. Caldwell with Neurology and was diagnosed with vestibular migraines. He has restarted his nortriptyline since his recent visit 2 days ago, his headache has resolved all of his symptoms have continued to worsen. He did also try a Klonopin which was unsuccessful. He had not been taking these medications regularly. Of note patient had been switched to amlodipine several weeks ago for hypertension, he has returned to his atenolol a little less than 2 weeks ago and has been taking that regularly. On Anticoagulants: No Related Data Home Medications Medication Instructions Recorded Confirmed L.acidophilus-B.infantis-B.bifidum-B.animalis 1 cap PO DAILY 12/25/18 08/23/20 5 billion cell capsule ascorbate calcium (vitamin C) 500 500 mg PO DAILY 12/25/18 08/23/20 mg tablet aspirin 81 mg tablet,delayed 81 mg PO DAILY 12/25/18 08/23/20 release colchicine 0.6 mg tablet 1.2 mg PO DAILY 12/25/18 08/23/20 multivitamin 1 cap PO DAILY 12/25/18 08/23/20 omega-3 fatty acids 1,000 mg 1,000 mg PO DAILY 05/04/20 08/23/20 capsule turmeric root extract 500 mg 1,000 mg PO DAILY 07/30/20 07/30/20 capsule Previous Rx's Medication Instructions Recorded acetaminophen 1,000 mg PO Q6H #30 tab 01/10/19 amlodipine 5 mg tablet 5 mg PO DAILY #90 tab 07/30/20 Allergies Allergy/AdvReac Type Severity Reaction Status Date / Time Penicillins [PENICILLINS] Allergy Unknown hives Verified 07/30/20 16:28 Review of Systems Review of Systems ROS Unobtainable: All systems reviewed & are unremarkable except as noted in HPI and below Hematologic/Lymphatic On Anticoagulants: No Patient History Medical History Diverticulosis GERD (gastroesophageal reflux disease) Gout Hyperlipidemia Hypertension Hypoglycemia Vertigo Surgical History History of surgery (12/23/17) Hx of bilateral cataract extraction (~2017) Hx of knee surgery (02/07/17) Family History Mother Hypertension Sister Hypertension Brother Hypertension Social History household members: none occupational status: previously employed Smoking Status: Never smoker alcohol intake: former substance use type: does not use Smoking Status: Never smoker alcohol intake frequency: 0-2 drinks per day Substance Use Type: does not use Exam Narrative Exam Narrative: GEN: well nourished male, alert and oriented x 3, patient appears to be in mild distress. HEENT: Atraumatic, pupils are equal round reactive to light, extraocular movements are intact, positive for nystagmus, nares are clear, TMs are clear with no fluid, there is no conjunctival pallor. Throat is clear without any exudates, erythema, tonsillar enlargement or uvular deviation, no facial droop. I can appreciate tremor with movement of patients face. Patient does have some dysarthria with speech which was not present on exam 2 days prior. HEART: Regular rate and rhythm without murmur, clicks, rubs. Pulses are equal in upper and lower extremities LUNGS:Lungs clear to auscultation, no wheezes, rales, crackles, chest moves symmetrically ABD:bowel sounds normal, soft, non-tender, no guarding, rebound, rigidity, no masses noted, no hepatosplenomegaly :No CVA tenderness MSCL: Non-tender, no muscle atrophy, muscles strength 5/5 upper and lower extremities, full range of motion NEURO:CN 2-12 intact, sensation normal, reflexes 2/4 upper extremities, 2/4 but mildly hyperreflexic bilateral lower extremities, no clonus noted. finger nose finger test normal, heel shipman test normal, patient does have generalized tremor on exam, it is more obvious with intention but is present while resting. Patient was seen by myself 2 days prior and does appear slightly worsened today. No fasculations noted. SKIN: No rash or other skin changes appreciated. Initial Vital Signs Initial Vital Signs: Vital Signs Pulse Rate 106 H 08/23/20 10:45 Respiratory Rate 19 08/23/20 10:45 Scores GCS Ang coma scale eye opening: Spontaneous Ang coma scale verbal response: Orientated Ang coma scale motor response: Obey commands [place] coma scale total score: 15 NIH Stroke Scale Level of Conciousness: Alert, keenly responsive Ask month/age: Answers both questions correctly. Open/close eyes, close hand: Performs both tasks correctly Best gaze horizontal: Normal Visual pruitt: No visual loss Facial palsy: Normal symetrical movement Left arm drift: No drift for full 10 sec Right arm drift: No drift for full 10 sec Left leg drift: No drift for full 5 sec Right leg drift: No drift for full 5 sec Limb ataxia: Absent Sensory on face/arms/legs: Normal, no sensory loss Best language: Mild to moderate, slurs some words Dysarthria: Mild to mod,some slurring Extinction or inattention: No abnormality Total NIH Stroke scale score: 2 Course Orders Ordered: ED Orders 08/23/20 10:52 Complete Blood Count AUTO DIFF Stat Comprehensive Metabolic Panel Stat Partial Thromboplastin Time Stat Prothrombin Time INR Stat Thyroid Stimulating Hormone Stat 08/23/20 11:45 Ammonia (NH3) Stat 08/23/20 11:54 MR stroke Stat 08/23/20 14:16 COVID19 Stat Discontinued Medications Lorazepam (Lorazepam 2 Mg/Ml Inj) 0.5 mg IV NOW ONE Stop: 08/23/20 14:08 Last Admin: 08/23/20 14:12 Dose: 0.5 mg Documented by: APRIL Lorazepam (Lorazepam 2 Mg/Ml Inj) 0.5 mg IV NOW ONE Stop: 08/23/20 17:33 Last Admin: 08/23/20 17:38 Dose: 0.5 mg Documented by: APRIL Consultations Consultation #1: Spoke with Dr. Caldwell, he does recommend MRI with and without contrast. We did discuss that patient's gait has become concerning for safety. He states he does follow with patient's at [facility] and if the knee does felt to transfer the patient he would be willing to see them today. Time: 12:41 Consultation #2: Spoke with Dr. Miller the hospitalist at [facility] in [place]. We discussed patient's findings today and that Neurology would be happy to see the patient today. He does ask that we deferred transfer if were able to obtain MRI 1st to rule out CVA. If we are unable to obtain MRI or if it does not show CVA or other cause that would not necessitate transfer he is happy to accept. Time: 13:20 Consultation #3: Discussed MRI findings with Dr. Miller as well as covid status is positive. We did discuss that baby in had CT angiography 2 days ago which showed pneumonia but patient had been asymptomatic according to the patient at least a month ago and had refused COVID testing at that time. Time: 16:12 Vital Signs Vital signs: Vital Signs - 8 hr 08/23/20 11:30 08/23/20 11:55 08/23/20 12:00 Pulse Rate 71 72 70 Respiratory Rate 31 H 21 27 H Blood Pressure 129/80 127/78 Pulse Oximetry 95 96 96 08/23/20 12:30 08/23/20 13:00 08/23/20 13:30 Pulse Rate 66 78 65 Respiratory Rate 21 26 H 19 Blood Pressure 131/73 165/94 H 133/72 Pulse Oximetry 96 94 93 08/23/20 14:04 08/23/20 14:15 08/23/20 14:30 Pulse Rate 87 69 65 Respiratory Rate 23 23 Blood Pressure 137/82 115/71 Pulse Oximetry 94 98 98 08/23/20 15:25 08/23/20 15:29 08/23/20 15:30 Pulse Rate 171 H 83 82 Respiratory Rate 22 25 H Blood Pressure 141/78 H 137/77 Pulse Oximetry 96 96 08/23/20 16:41 08/23/20 16:43 08/23/20 17:00 Pulse Rate 81 72 Respiratory Rate 28 H 24 Blood Pressure 142/85 H 118/67 Pulse Oximetry 90 L 97 94 08/23/20 17:30 08/23/20 18:00 Pulse Rate 78 77 Respiratory Rate 23 21 Blood Pressure 152/79 H 130/73 Pulse Oximetry 94 92 MDM - Neuro Symptoms/Deficit Lab Data Attestation: I reviewed the patient's lab results. Result diagrams: 08/23/20 10:52 08/23/20 10:52 Labs: Lab Results 08/23/20 08/23/20 08/23/20 Range/Units 10:52 10:52 10:52 WBC 5.8 (4.5-11.0) X10^3/uL RBC 4.89 (4.5-5.9) X10^6/uL Hgb 14.8 (13.5-17.5) g/dL Hct 42.3 (41-53) % MCV 86.5 (80-100) fL MCH 30.2 (26-34) PG MCHC 34.9 (30-36) % RDW 12.8 (11.6-14.8) % Plt Count 160 (150-400) X10^3/uL Neut % (Auto) 54.1 (50-75) % Lymph % (Auto) 32.6 (25-40) % Giles % (Auto) 9.9 (3-14) % Eos % (Auto) 2.3 (2-4) % Baso % (Auto) 1.1 (0-2) % Neut # (Auto) 3100 (0465-3844) /uL Lymph # (Auto) 1900 (2730-6902) /uL Giles # (Auto) 600 (0-900) /uL Eos # (Auto) 100 (0-450) /uL Baso # (Auto) 100 (0-100) /uL PT 13.2 H (10.1-12.7) SECONDS INR 1.2 (0.9-1.3) APTT 33 (26.4-36.2) SECONDS Sodium 139 (137-145) mmol/L Potassium 3.7 D (3.4-5.1) mmol/L Chloride 106 (98-107) mmol/L Carbon Dioxide 24 (22-32) mmol/L BUN 25 H (9-20) mg/dL Creatinine 0.92 (0.66-1.25) mg/dL Estimated GFR > 60.0 (>60) mL/min BUN/Creatinine Ratio 27.2 H (6-22) Glucose 107 (80-110) mg/dL Calcium 9.2 (8.4-10.2) mg/dL Total Bilirubin 0.9 (0.2-1.3) mg/dL AST 37 (17-59) IU/L ALT 26 (<50) IU/L Alkaline Phosphatase 68 (38-126) U/L Ammonia (9-30) umol/L Total Protein 7.0 (6.3-8.2) g/dL Albumin 4.3 (3.5-5.0) g/dL Globulin 2.7 (1.7-4.1) g/dL Albumin/Globulin Ratio 1.6 (1.0-2.8) TSH (0.47-4.68) uIU/mL SARS-CoV-2 (PCR) (Negative) 08/23/20 08/23/20 08/23/20 Range/Units 10:52 11:45 14:16 WBC (4.5-11.0) X10^3/uL RBC (4.5-5.9) X10^6/uL Hgb (13.5-17.5) g/dL Hct (41-53) % MCV (80-100) fL MCH (26-34) PG MCHC (30-36) % RDW (11.6-14.8) % Plt Count (150-400) X10^3/uL Neut % (Auto) (50-75) % Lymph % (Auto) (25-40) % Giles % (Auto) (3-14) % Eos % (Auto) (2-4) % Baso % (Auto) (0-2) % Neut # (Auto) (4700-5211) /uL Lymph # (Auto) (3761-9594) /uL Giles # (Auto) (0-900) /uL Eos # (Auto) (0-450) /uL Baso # (Auto) (0-100) /uL PT (10.1-12.7) SECONDS INR (0.9-1.3) APTT (26.4-36.2) SECONDS Sodium (137-145) mmol/L Potassium (3.4-5.1) mmol/L Chloride (98-107) mmol/L Carbon Dioxide (22-32) mmol/L BUN (9-20) mg/dL Creatinine (0.66-1.25) mg/dL Estimated GFR (>60) mL/min BUN/Creatinine Ratio (6-22) Glucose (80-110) mg/dL Calcium (8.4-10.2) mg/dL Total Bilirubin (0.2-1.3) mg/dL AST (17-59) IU/L ALT (<50) IU/L Alkaline Phosphatase (38-126) U/L Ammonia < 9 L (9-30) umol/L Total Protein (6.3-8.2) g/dL Albumin (3.5-5.0) g/dL Globulin (1.7-4.1) g/dL Albumin/Globulin Ratio (1.0-2.8) TSH 3.89 (0.47-4.68) uIU/mL SARS-CoV-2 (PCR) Positive H (Negative) Urine Dip Bedside Urine Glucose Negative Bedside Urine Bilirubin - Negative Bedside Urine Ketone - Negative Urine Specific [place] 1.030 Bedside Urine Occult Blood - Negative Bedside Urine pH 6.0 Bedside Urine Protein - Negative Bedside Urine Urobilinogen - Negative Bedside Urine Nitrite - Negative Bedside Urine Leukocytes - Negative Esterase Imaging Data CT scan - head: Radiologist's Impression: Taye Lopez M [address] [id number] Scan ReportSigned Patient: Taye Lopez AMR#: [id number]: 1950cct:[id number]/Sex: 69 / MDate of Service: 08/21/20Loc: EDAccession Number: [id number] Procedure: CT head/brain wo/w con Ordering Provider: Any Perea D.O. PROCEDURE: CT HEAD/BRAIN WO/W CON INDICATIONS: increasing headaches, hypertension, new onset tremor TECHNIQUE: 4.5 mm thick angled axial sections acquired from the foramen magnum to the vertex both before and after the administration of intravenous contrast, with coronal and sagittal reformats. For radiation dose reduction, the following was used: automated exposure control, adjustment of mA and/or kV according to patient size. COMPARISON: None. FINDINGS: Image quality: Excellent. CSF spaces: Basal cisterns are patent. No extra-axial fluid collections. Ventricles are symmetric in size and shape. Brain: No midline shift. No intracranial bleeds or masses. No abnormal intracranial enhancement. There is cerebral volume loss for age. There is periventricular white matter chronic small vessel ischemic change. There is intracranial internal carotid artery atherosclerosis. Skull and face: Calvarium and visualized facial bones appear intact, without suspicious lesions. Sinuses: Visualized sinuses and mastoids are clear. IMPRESSION: 1. No CT evidence of acute intracranial pathology. No area of abnormal contrast enhancement. 2. Mild periventricular and deep white matter chronic small vessel ischemic changes. Dictated by: Cameron Covarrubias M.D. on 08/21/2020 at 14:15 Approved by: Cameron Covarrubias M.D. on 08/21/2020 at 14:17 CTA - brain/neck: Radiologist's Impression: Taye Lopez 69 M [address] Scan ReportSigned Patient: Taye Lopez AMR#: [id number]: 1950cct:[id number]/Sex: 69 / MDate of Service: 08/21/20Loc: EDAccession Number: [id number] Procedure: CT angio head and neck Ordering Provider: Any Perea D.O. PROCEDURE: CT ANGIO HEAD AND NECK INDICATIONS: neurology request. [place], tremor, vertigo TECHNIQUE: After the administration of intravenous contrast, 1 mm thick sections acquired from the aortic arch through the [place] of [place]. Post-contrast 4.5 mm thick sections then re-acquired from the foramen magnum to the vertex. 3-dimensional xlmtilq-oznedvljy-zmemvmrcfg (MIP) and/or volume rendering reformats were acquired of the central intracranial vasculature and neck separately. COMPARISON: [facility], CR, XR CHEST 1V, 08/21/2020, 13:07. [facility], CT, CT HEAD/BRAIN WO/W CON, 08/21/2020, 13:57. FINDINGS: Image quality: Excellent. BRAIN: CSF spaces: Ventricles are normal in size and shape. Basal cisterns are patent. No extra-axial fluid collections. Brain: No midline shift. No intracranial bleeds or masses. [place]-white matter interface appears intact. Skull and face: Calvarium and facial bones appear intact, without suspicious lesions. Orbits appear normal. Sinuses: Sinuses and mastoids are clear. HEAD CT ANGIOGRAPHY: Anterior circulation: Intracranial internal carotid arteries are normal in size and flow. The flow within the paired anterior cerebral arteries is normal and symmetric. The flow within the middle cerebral arteries is normal and symmetric. The anterior communicating artery is seen. No aneurysms are seen. Posterior circulation: Visualized portions of the vertebral arteries demonstrate normal caliber, and join to form a normal appearing basilar artery. Flow within the posterior cerebral arteries is normal and symmetric. No aneurysms are seen. NECK CT ANGIOGRAPHY: Carotid system: The great vessels demonstrate a conventional anatomy as they arise from the aortic arch. The origins of the common carotid arteries appear patent. The common carotid arteries demonstrate normal caliber and courses. The bifurcation regions are both widely patent. The internal carotid arteries demonstrate normal calibers and courses. Posterior circulation: The origins of the vertebral arteries both appear widely patent. The more superior extracranial portions of both vertebral arteries also demonstrate normal courses and calibers. They join to form a normal appearing basilar artery. Soft tissues: Visualized neck soft tissues demonstrate no suspicious abnormalities. Bilateral patchy infiltrates in upper lobes. There are may be bibasilar consolidations. The CT findings are suspected bilateral pneumonia. Mild mediastinal and hilar lymphadenopathy. Mild coronary artery calcification. Bones: No suspicious bony lesions. Visualized cervical spine appears normally aligned. IMPRESSION: 1. No acute intracranial abnormalities. 2. No hemodynamic significant stenosis in anterior or posterior circulations. 3. No hemodynamic significant stenosis in cervical carotid arteries or vertebral arteries bilaterally. 4. Bilateral pneumonia. 5. Mild mediastinal and hilar lymphadenopathy, most likely reactive. Recommend clinical correlation and imaging follow-up. The result was discussed with Dr. Perea. Any quantitative measurements of stenosis were performed using NASCET criteria. Dictated by: Chula Melgar M.D. on 08/21/2020 at 16:23 Approved by: Chula Melgar M.D. on 08/21/2020 at 16:33 MRI : Radiologist's Impression: [place] [id number] [place] [id number] Resonance ReportSigned Patient: Taye Lopez [facility]#: [id number]: 2Acct:[id number]/Sex: 69 / MDate of Service: 08/23/20Loc: EDAccession Number: [id number] Procedure: MR stroke Ordering Provider: Any Perea D.O. PROCEDURE: MR STROKE Pre- and post-contrast brain MRI, non-contrast brain MR angiogram, pre- and postcontrast neck MR angiogram INDICATIONS: generalized tremor, sudden onset, vertigo, ataxia. TECHNIQUE: Brain: Noncontrast axial T1 spin echo, axial T2 fast spin echo, sagittal and axial FLAIR, coronal T2 fast spin echo, axial gradient echo, axial diffusion and ADC through the brain. After the administration of contrast, axial 3D VIBE of the cranial vasculature and brain. Brain MRA: Non-contrast 3-D time of flight MR angiogram, with multiple azeggdb-cbwehmaxe-anxnvaicum (MIP) reformats performed. Neck MRA: Axial and sagittal TruFISP through the neck. Coronal dynamic MR angiogram during administration of contrast in the arterial and venous phases, with 3-dimenstional bydfsbw-bqikkzmcd-mtjbrebxfq (MIP) reformats constructed from subtraction images. COMPARISON: [facility], CT, CT ANGIO HEAD AND NECK, 08/21/2020, 15:14. FINDINGS: Image quality: Excellent. BRAIN: CSF spaces: Ventricles are normal in size and shape. Basal cisterns are patent. No extra-axial fluid collections. Brain: No intracranial bleeds or mass effects. Mild diffuse cerebral volume loss. Minimal degree of patchy high FLAIR signal within the periventricular and subcortical white matter. [place]-white matter interface is normal. Diffusion weighted images show no acute ischemic insults. Brainstem appears normal. Normal intravascular flow voids are present. No abnormal intracranial enhancement. Skull and face: Calvarial marrow signal is normal. Orbits appear normal. Sinuses: Mild bilateral maxillary sinus mucosal thickening. Sinuses and mastoids are otherwise clear. BRAIN MR ANGIOGRAM: Anterior circulation: Intracranial internal carotid arteries are normal in size and enhancement. The flow within the paired anterior cerebral arteries is normal and symmetric. The flow within the middle cerebral arteries is normal and symmetric. The anterior communicating artery is seen. No stenoses, occlusions, or aneurysms. Posterior circulation: The visualized portions of the vertebral arteries demonstrate normal caliber, and join to form a normal appearing basilar artery. The flow within the posterior cerebral arteries is normal and symmetric. No stenoses, occlusions, or aneurysms. NECK MR ANGIOGRAM: Carotids: Great vessels demonstrate a conventional anatomy as they arise from the aortic arch. The origins of the common carotid arteries appear patent. The calibers and courses of both common carotid arteries are normal. The bifurcation regions appear normal bilaterally. The internal carotid arteries demonstrate normal course and caliber. Posterior circulation: The origins of the vertebral arteries appear patent. More superior portions of both vertebral arteries demonstrate normal course and caliber, and join to form a normal appearing basilar artery. Miscellaneous: Subclavian arteries appear patent. Pre-contrast images through the neck show no soft tissue abnormalities. IMPRESSION: BRAIN MRI: 1. No recent infarct. 2. Mild volume loss and minimal small vessel ischemic disease. BRAIN MR ANGIOGRAM: Negative evaluation of the arterial vasculature of the head. No significant change compared to 08/21/2020. NECK MR ANGIOGRAM: Negative evaluation of the arterial vasculature of the neck. No significant change compared to 08/21/2020. Dictated by: Renee Arias M.D. on 08/23/2020 at 15:56 Approved by: Renee Arias M.D. on 08/23/2020 at 15:59 ECG Data Attestation: I personally reviewed and interpreted this ECG as follows: Prior ECG tracings: available for review Interpretation: SInus rhythm 89 SD 166 QRS 88 QTC of 445. No acute ST elevation depression appreciated. MDM Narrative Medical decision making narrative: This is 61-year-old male comes to the emergency department with complaint of worsening tremor, patient denies room spinning or vertigo but he has had difficulty ambulating requiring holding the wick almost it worsening ataxic gait. He noted symptoms 1st approximately 4 days ago. He states they have been progressive since and he is now having difficulty with speech which she did not have 2 days prior when I initially evaluated him. Patient states that he feels like he is having a little bit of difficulty with urination, bladder scan he had 280 mL urinated only 20 afterwards but is not in discomfort. Patient's labs on both stays do not have any conclusive changes. He had MRI today without any acute findings. Patient had CT with and without contrast as well as CT angiography 2 days ago with no acute findings. On his CTA that he had bilateral pneumonia which was not appreciated on CXR at that time and patient stated that he had had some mild upper respiratory symptoms in the last month that had resolved. COVID testing was discussed and patient politely refused at that time. He is COVID positive today. he has not had any hypoxia here in the department. Patients friend at bedside also states his personality seems different. Patient's care was discussed with Dr. Caldwell his neurologist who recommended MRI and would see patient if transferred to [place]. Spoke with Dr. Miller who accepts for transfer based on patient's rapid progression of symptoms, need for neurologic evaluation which we do not have available and patient's inability to ambulate safely. Discharge Plan Departure Patient Disposition: [facility] Clinical Impression: Tremor, COVID-19 virus infection, Difficulty with speech Prescriptions: No Action omega-3 fatty acids [Fish Oil Concentrate] 1,000 mg capsule 1,000 mg PO DAILY RF: 0 turmeric root extract 500 mg capsule 1,000 mg PO DAILY RF: 0 amlodipine 5 mg tablet 5 mg PO DAILY Qty: 90 RF: 0 colchicine [Colcrys] 0.6 mg tablet 1.2 mg PO DAILY RF: 0 aspirin [Adult Aspirin Regimen] 81 mg tablet,delayed release (DR/EC) 81 mg PO DAILY RF: 0 multivitamin capsule 1 cap PO DAILY RF: 0 ascorbate calcium (vitamin C) 500 mg tablet 500 mg PO DAILY RF: 0 Probiotic Digestive System Sup 5 billion cell capsule 1 cap PO DAILY RF: 0 acetaminophen 500 mg tablet 1,000 mg PO Q6H Qty: 30 RF: 0 Referrals: Chan Sheffield MD [Primary Care Provider] -
--- NOTE | 2020-08-23 11:54 | DI.MRI.S_ITS ---
PROCEDURE: MR STROKE Pre- and post-contrast brain MRI, non-contrast brain MR angiogram, pre- and postcontrast neck MR angiogram INDICATIONS: generalized tremor, sudden onset, vertigo, ataxia. TECHNIQUE: Brain: Noncontrast axial T1 spin echo, axial T2 fast spin echo, sagittal and axial FLAIR, coronal T2 fast spin echo, axial gradient echo, axial diffusion and ADC through the brain. After the administration of contrast, axial 3D VIBE of the cranial vasculature and brain. Brain MRA: Non-contrast 3-D time of flight MR angiogram, with multiple hivvagk-dtyquehcv-cuozxdwgqu (MIP) reformats performed. Neck MRA: Axial and sagittal TruFISP through the neck. Coronal dynamic MR angiogram during administration of contrast in the arterial and venous phases, with 3-dimenstional gjkmdbc-jmhqdhzcp-lckcjzbdhh (MIP) reformats constructed from subtraction images. COMPARISON: [facility], CT, CT ANGIO HEAD AND NECK, 08/21/2020, 15:14. FINDINGS: Image quality: Excellent. BRAIN: CSF spaces: Ventricles are normal in size and shape. Basal cisterns are patent. No extra-axial fluid collections. Brain: No intracranial bleeds or mass effects. Mild diffuse cerebral volume loss. Minimal degree of patchy high FLAIR signal within the periventricular and subcortical white matter. [place]-white matter interface is normal. Diffusion weighted images show no acute ischemic insults. Brainstem appears normal. Normal intravascular flow voids are present. No abnormal intracranial enhancement. Skull and face: Calvarial marrow signal is normal. Orbits appear normal. Sinuses: Mild bilateral maxillary sinus mucosal thickening. Sinuses and mastoids are otherwise clear. BRAIN MR ANGIOGRAM: Anterior circulation: Intracranial internal carotid arteries are normal in size and enhancement. The flow within the paired anterior cerebral arteries is normal and symmetric. The flow within the middle cerebral arteries is normal and symmetric. The anterior communicating artery is seen. No stenoses, occlusions, or aneurysms. Posterior circulation: The visualized portions of the vertebral arteries demonstrate normal caliber, and join to form a normal appearing basilar artery. The flow within the posterior cerebral arteries is normal and symmetric. No stenoses, occlusions, or aneurysms. NECK MR ANGIOGRAM: Carotids: Great vessels demonstrate a conventional anatomy as they arise from the aortic arch. The origins of the common carotid arteries appear patent. The calibers and courses of both common carotid arteries are normal. The bifurcation regions appear normal bilaterally. The internal carotid arteries demonstrate normal course and caliber. Posterior circulation: The origins of the vertebral arteries appear patent. More superior portions of both vertebral arteries demonstrate normal course and caliber, and join to form a normal appearing basilar artery. Miscellaneous: Subclavian arteries appear patent. Pre-contrast images through the neck show no soft tissue abnormalities. IMPRESSION: BRAIN MRI: 1. No recent infarct. 2. Mild volume loss and minimal small vessel ischemic disease. BRAIN MR ANGIOGRAM: Negative evaluation of the arterial vasculature of the head. No significant change compared to 08/21/2020. NECK MR ANGIOGRAM: Negative evaluation of the arterial vasculature of the neck. No significant change compared to 08/21/2020. Dictated by: Renee Arias M.D. on 08/23/2020 at 15:56 Approved by: Renee Arias M.D. on 08/23/2020 at 15:59
[2020-08-23 12:01] LABS: Ammonia (NH3) < 9 umol/L (9-30)
--- NOTE | 2020-08-23 12:17 | PC.NURSE ---
patient was feeling fine and well 2 days ago. He is a healthy person that in the last year has had two spells of vertigo that happened in the same day. He recently began having head aches. 2 days ago he developed tremors in his whole body on both sides. He is having trouble walking, talking, and now swallowing. His friend stated that between yesterday and today he has progressively gotten worse.
[2020-08-23 12:47] LABS: Thyroid Stimulating Hormone 3.89 uIU/mL (0.47-4.68)
[2020-08-23] MEDS: LORazepam 2 MG/ML INJ 0.5 MG IV ×2 (14:12→17:38)
--- NOTE | 2020-08-23 14:23 | PC.NURSE ---
patient has profound bilateral tremors. no sensory changes. He does notice a small change in his swallowing abilities.
[2020-08-23 15:04] LABS: COVID19 -Nasal RAPID POSITIVE (Negative)
== END 2020-08-23 18:50 | disposition short-term general hospital (02) ==
PROVIDERS: Emergency Provider Emergency Medicine; PCP Family Medicine
DX: R25.1 Tremor, unspecified (principal); U07.1 COVID-19; R47.9 Unspecified speech disturbances; R51.9 Headache, unspecified; I10 Essential (primary) hypertension; Z20.822 Contact with and (suspected) exposure to COVID-19
CPT/HCPCS: 36415; 70548; 70553; 80053; 81003; 82140; 84443; 85025; 85610; 85730; 87635; 93005; 96374; 96376; 99284; C9803; A9579; J2060

== ENCOUNTER → 2021-02-26 16:38 | Outpatient (ROUT) | payer MEDICARE, OTHER, SELFPAY ==
[2021-02-27 10:55] LABS: SARS CoV19 IgG Positive (Negative)
== END ==
PROVIDERS: PCP Family Medicine; Visit Provider Family Medicine
DX: Z20.822 Contact with and (suspected) exposure to COVID-19 (principal)
CPT/HCPCS: 36415; 86769

== ENCOUNTER → 2021-09-20 11:58 | Outpatient (CLI) | payer MEDICARE, OTHER, SELFPAY ==
[2021-09-20 12:29] LABS: Add Manual Diff / Slide Review NO; Basophils Absolute Auto 0 /uL (0-100); Basophils Percent Auto 0.7 % (0-2); Eosinophils Absolute Auto 200 /uL (0-450); Eosinophils Percent Auto 4.1 % (2-4); Hematocrit 41.1 % (41-53); Hemoglobin 14.2 g/dL (13.5-17.5); Lymphocytes Absolute Auto 1800 /uL (1100-4500); Lymphocytes Percent Auto 44.5 % (25-40); Mean Corpuscular HGB Conc 34.5 % (30-36); Monocytes Absolute Auto 500 /uL (0-900); Neutrophils Absolute Auto 1500 /uL (1500-7000); Neutrophils Percent Auto 38.7 % (50-75); Platelet Count 104 X10^3/uL (150-400); Red Blood Cell Count 4.72 X10^6/uL (4.5-5.9); Red Cell Distribution Width 14.1 % (11.6-14.8)
[2021-09-20 12:43] LABS: Alanine Aminotransferase 56 IU/L (<50); Albumin 4.2 g/dL (3.5-5.0); Albumin Globulin Ratio 1.9 (1.0-2.8); Alkaline Phosphatase 40 U/L (38-126); Aspartate Aminotransferase 50 IU/L (17-59); BUN Creatinine Ratio 18.5 (6-22); Bilirubin Total 0.9 mg/dL (0.2-1.3); Blood Urea Nitrogen 17 mg/dL (9-20); Calcium 9.2 mg/dL (8.4-10.2); Carbon Dioxide 26 mmol/L (22-32); Chloride 109 mmol/L (98-107); Cholesterol 163 mg/dL (140-199); Estimated Glomerular Filt Rate > 60.0 mL/min (>60); Globulin 2.2 g/dL (1.7-4.1); Glucose 98 mg/dL (80-110); HDL Cholesterol 47 mg/dL (40-60); HEMOLYSIS < 15 (0-50); LDL Cholesterol Calculated 97 mg/dL (<100); Magnesium 1.9 mg/dL (1.6-2.3); Sodium 143 mmol/L (137-145); Total Protein 6.4 g/dL (6.3-8.2); Triglycerides 97 mg/dL (35-150)
[2021-09-20 13:09] LABS: TSH w/ Reflex to FT4 4.48 uIU/mL (0.47-4.68)
[2021-09-20 16:07] LABS: Vitamin D 25 Hydroxy (D3) 83.9 ng/mL (30.0-100.0)
== END ==
PROVIDERS: PCP Family Medicine; Referring Provider Family Medicine; Visit Provider Family Medicine
DX: E78.5 Hyperlipidemia, unspecified (principal); I10 Essential (primary) hypertension; R42 Dizziness and giddiness
CPT/HCPCS: 36415; 80053; 80061; 82306; 83735; 84443; 85025

== ENCOUNTER → 2022-04-04 11:20 | Outpatient (CLI) | payer MEDICARE, OTHER, SELFPAY ==
[2022-04-04 13:32] LABS: COVID19 -Nasal RAPID Negative (Negative)
== END ==
PROVIDERS: PCP Family Medicine; Visit Provider Surgery
DX: Z20.822 Contact with and (suspected) exposure to COVID-19 (principal); Z01.812 Encounter for preprocedural laboratory examination
CPT/HCPCS: 87635; C9803

== ENCOUNTER 2022-04-05 08:05 | Day surgery (SDC) | payer MEDICARE, OTHER, SELFPAY ==
[2022-04-05] VITALS (9 sets, daily range): BP systolic 111–141; BP diastolic 65–76; PULSE 52–66; RESP 10–18; TEMP 36.1–36.4; O2SAT 97–100; BMI 26.6
--- NOTE | 2022-04-05 08:40 | SUR.OPER ---
Supine on padded OR bed, head on pillow, arms secured on padded arm boards at <90 degrees abduction, legs uncrossed, safety belt at thigh, tape over blanket over lower legs.
[2022-04-05 09:18] LABS: Hematocrit 37.8 % (41-53); Hemoglobin 13.4 g/dL (13.5-17.5); Mean Corpuscular HGB Conc 35.4 % (30-36); Mean Corpuscular Hemoglobin 31.2 PG (26-34); Platelet Count 105 X10^3/uL (150-400); Red Blood Cell Count 4.29 X10^6/uL (4.5-5.9); Red Cell Distribution Width 13.9 % (11.6-14.8); White Blood Cell Count 5.1 X10^3/uL (4.5-11.0)
--- NOTE | 2022-04-05 10:09 | PM.PREOP ---
Pre-operative Note COVID-19 COVID-19 status: Negative Interval Note History & Physical reviewed/Exam performed by Physician: Yes Changes to H&P: No H&P completed within 30 days and has changed as indicated here:: Plts of 105 today. Feeling well. This is a relatively low bleeding risk surgery, ok to proceed for me.
[2022-04-05] MEDS: CEFAZOLIN 2 GM/100 ML PREMIX 100 ML IV (10:31)
[2022-04-05] MEDS: BUPIVACAINE 0.5% W/ EPI (PF) 30 ML VIAL INJ (11:04)
--- NOTE | 2022-04-05 12:20 | P.OP_ITS ---
Procedure & Clinicians Procedure: Right inguinal hernia repair Same procedure as scheduled: Yes Surgeon: Suze Guzmán Click Yes if Unassisted: Yes Operative Notes Findings: Patient was taken to the operating room and placed supine on the operating room table. Preoperative antibiotics were administered; bilateral SCDs were in place. Preoperative time-out was performed. Local anesthesia was infused to create an iliohypogastric block in the normal way and more was infused in the subcutaneous tissue as well. The patient was very comfortable with that, but the monitored anesthetic care was causing him to be a little confused and he kept moving around. For this reason a LMA was placed and he was taken under deeper anesthesia. The case proceeded in the normal fashion. Incision was made with a 10 blade scalpel in the Amelia's lines overlying the inguinal canal. This incision was carried down through the subcutaneous tissue using electrocautery. The cutaneous hypogastric vein was doubly tied with a 3-0 Vicryl suture and ligated. The incision was then carried down to the level of the external oblique fascia. This was incised sharply and after sweeping of the posterior tissue away of the fascia was incised using a Metzenbaum scissors opening up the external ring. Next dissection was carried down around the pubic tubercle isolating the cord structures with a [place] drain. The Vas Deferens was identified. There was a large hernia sac protruding from the direct space. There was also a indirect hernia sac which was smaller. Both of these sacs were dissected free and returned to their correct abdominal position. A small 3-0 Vicryl tacking suture was placed through the internal oblique and inguinal ligament to hold the larger of the sacs down in its position as we secured the mesh. A polypropylene mesh was secured in the normal fashion by using a 2-0 Prolene suture to secure the corner to Sedrick's fascia. This suture was then run along the inferior portion of the mesh and the inguinal ligament and secured to the inguinal ligament lateral to the internal ring. The mesh was split to allow the cord structures through it. Interrupted 3-0 Vicryl sutures were used to tack superior portion of the mesh just very loosely into position. Next a 3- 0 Prolene was used to run the external oblique fascia closed. 3-0 Vicryl sutures were used in interrupted fashion to close Tom's fascia and the skin was closed with a running 4-0 Monocryl suture. EBL was minimal there were no complications patient tolerated the procedure well and went in good condition to the postoperative care unit. Specimen(s): none sent Complications: none Post-operative Disposition: PACU
[2022-04-05] MEDS: OXYCODONE/ACETAMINOPHEN 5/325 TABLET 1 TAB PO ×2 (12:40→13:12)
[2022-04-05] MEDS: LACTATED RINGERS 1,000 ML 120 ML IV (13:04)
== END 2022-04-05 13:25 | disposition home or self-care (01) ==
PROVIDERS: PCP Family Medicine; Referring Provider Surgery; Visit Provider Surgery
PROC: (CPT 49505; principal; 2022-04-05 09:45)
DX: K40.90 Unilateral inguinal hernia, without obstruction or gangrene, not specified as recurrent (principal); I10 Essential (primary) hypertension; Z79.82 Long term (current) use of aspirin
CPT/HCPCS: 49505; 36415; 85027; J0690; J2250; J2704; J2765; J3010

== ENCOUNTER → 2022-04-28 11:47 | Outpatient (CLI) | payer MEDICARE, OTHER, SELFPAY ==
[2022-04-28 12:45] LABS: Add Manual Diff / Slide Review NO; Basophils Absolute Auto 0 /uL (0-100); Basophils Percent Auto 0.3 % (0-2); Eosinophils Absolute Auto 100 /uL (0-450); Eosinophils Percent Auto 2.3 % (2-4); Hematocrit 38.1 % (41-53); Lymphocytes Absolute Auto 1400 /uL (1100-4500); Lymphocytes Percent Auto 22.2 % (25-40); Mean Corpuscular Hemoglobin 30.3 PG (26-34); Monocytes Absolute Auto 800 /uL (0-900); Neutrophils Absolute Auto 3800 /uL (1500-7000); Neutrophils Percent Auto 62.2 % (50-75); Platelet Count 165 X10^3/uL (150-400); Red Blood Cell Count 4.28 X10^6/uL (4.5-5.9); Red Cell Distribution Width 13.6 % (11.6-14.8); White Blood Cell Count 6.2 X10^3/uL (4.5-11.0)
[2022-04-28 12:56] LABS: Alanine Aminotransferase 16 IU/L (<50); Albumin 3.9 g/dL (3.5-5.0); Alkaline Phosphatase 55 U/L (38-126); Aspartate Aminotransferase 22 IU/L (17-59); Bilirubin Total 0.7 mg/dL (0.2-1.3); Blood Urea Nitrogen 19 mg/dL (9-20); Calcium 8.9 mg/dL (8.4-10.2); Carbon Dioxide 29 mmol/L (22-32); Chloride 107 mmol/L (98-107); Estimated Glomerular Filt Rate > 60 mL/min (>60); Glucose 82 mg/dL (80-110); HEMOLYSIS < 15 (0-50); Potassium 4.5 mmol/L (3.4-5.1); Sodium 142 mmol/L (137-145); Total Protein 5.9 g/dL (6.3-8.2)
[2022-04-28 13:28] LABS: Prostate Specific Antigen Scrn 0.663 ng/mL (0.1-4.0)
== END ==
PROVIDERS: PCP Family Medicine; Referring Provider Family Medicine; Visit Provider Family Medicine
DX: E78.5 Hyperlipidemia, unspecified (principal); Z12.5 Encounter for screening for malignant neoplasm of prostate; G11.9 Hereditary ataxia, unspecified; I10 Essential (primary) hypertension
CPT/HCPCS: 36415; 80053; 85025; G0103

== ENCOUNTER → 2022-10-12 11:41 | Outpatient (CLI) | payer MEDICARE, OTHER, SELFPAY ==
[2022-10-13 15:51] LABS: Fecal Immunochemical Test Negative (Negative)
== END ==
PROVIDERS: PCP Family Medicine; Referring Provider Family Medicine; Visit Provider Family Medicine
DX: Z12.11 Encounter for screening for malignant neoplasm of colon (principal)
CPT/HCPCS: 82274

== ENCOUNTER 2023-09-23 23:45 | Emergency (ER) | payer MEDICARE, OTHER, SELFPAY ==
[2023-09-23 23:51] VITALS: BP 141/104; PULSE 71; RESP 18; TEMP 36.2; O2SAT 100; BMI 25.8
[2023-09-23] MEDS: NITROGLYCERIN 0.4 MG SL TAB SL (23:55)
--- NOTE | 2023-09-23 23:59 | ED_ITS ---
HPI - General Adult General Chief complaint: Abdominal Pain Stated complaint: Obstructed airway, (steak) Time Seen by Provider: 09/23/23 23:47 Source: patient Mode of arrival: Ambulatory History of Present Illness HPI narrative: 73-year-old male presents for food bolus. Patient ate steak for dinner at approximately 7:00 p.m. and since then he has been unable to tolerate even his saliva. He tried to drink fizzy drinks and jump up and down at home but nothing was able to dislodge the impaction. He feels pain in the center of his chest where he feels the food is caught up. He states that this is happened in the past and required endoscopy, but this was when he lived in [place] and he does not have any records of this incident on him. Related Data Home Medications Medication Instructions Recorded Confirmed aspirin 81 mg tablet,delayed 81 mg PO DAILY 12/25/18 04/05/22 release (Adult Aspirin Regimen) multivitamin 1 cap PO DAILY 12/25/18 04/05/22 omega-3 fatty acids 1,000 mg 1,000 mg PO DAILY 05/04/20 04/05/22 capsule (Fish Oil Concentrate) green tea leaf extract 250 mg See Rx Instructions .Route .COMPLEX 03/04/22 04/05/22 capsule (Green Tea) resveratrol 50 mg capsule See Rx Instructions .Route .COMPLEX 03/04/22 04/05/22 turmeric (bulk) [Curcumin] miscellaneous 03/04/22 03/15/22 Previous Rx's Medication Instructions Recorded acetaminophen 500 mg tablet 1,000 mg (2 x 500 mg) PO Q6H #30 01/10/19 tabs ibuprofen 600 mg tablet 600 mg PO Q6H #20 tabs 04/05/22 tamsulosin 0.4 mg capsule See Rx Instructions .Route 10/21/22 .COMPLEX #90 caps tadalafil 10 mg tablet (Cialis) 10 mg PO DAILY #60 tabs 01/17/23 atenolol 25 mg tablet 37.5 mg (1.5 x 25 mg) PO DAILY 08/03/23 #135 tabs divalproex 250 mg tablet,delayed 250 mg PO BID #180 tabs 08/03/23 release (Depakote) Allergies Allergy/AdvReac Type Severity Reaction Status Date / Time Penicillins [PENICILLINS] Allergy Unknown hives Verified 04/19/22 13:18 Review of Systems Review of Systems Narrative: Negative except as noted above Patient History Medical History BPH (benign prostatic hyperplasia) Hernia, inguinal, right Thrombocytopenia Cerebellar ataxia Vertigo Hyperlipidemia Hypertension Hypoglycemia GERD (gastroesophageal reflux disease) Diverticulosis Gout Surgical History S/P hernia surgery S/P hernia surgery (~2019) History of surgery (12/23/17) Hx of bilateral cataract extraction (~2016) Hx of knee surgery (02/07/17) Family History Mother Hypertension Sister Hypertension Brother Hypertension Social History household members: none occupational status: previously employed Smoking Status: Never smoker alcohol intake: never substance use type: does not use Smoking Status: Never smoker alcohol intake frequency: 0-2 drinks per day Substance Use Type: does not use Exam Initial Vital Signs Initial Vital Signs: Vital Signs Temperature 97.1 F L 09/23/23 23:51 Pulse Rate 71 09/23/23 23:51 Respiratory Rate 18 09/23/23 23:51 Blood Pressure 141/104 H 09/23/23 23:51 Pulse Oximetry 100 09/23/23 23:51 Oxygen Delivery Method Room Air 09/23/23 23:51 Const: Awake, alert, uncomfortable Skin: Warm, Dry, intact, no rashes Neuro: AO x3, CN II-XII grossly intact, moves all extremities Course Orders Ordered: Nitroglycerin (Nitroglycerin 0.4 Mg Sl Tab) 0.4 mg SL [id number] PRN PRN Reason: Chest Pain Last Admin: 09/23/23 23:55 Dose: 0.4 mg Documented By: IDANA Discontinued Medications Glucagon (Glucagon,Human Recombinant 1 Mg/Ml Vial) 3 mg IV NOW ONE Stop: 09/23/23 23:51 Last Admin: 09/24/23 00:17 Dose: Not Given Documented By: DIANA Glucagon (Glucagon,Human Recombinant 1 Mg/Ml Vial) 2 mg IV NOW ONE Stop: 09/23/23 23:54 Last Admin: 09/24/23 00:10 Dose: 2 mg Documented By: DIANA Sterile Water (Water For Injection,Sterile 500 Ml) 2 ml IV NOW ONE Stop: 09/24/23 00:06 Last Admin: 09/24/23 00:17 Dose: Not Given Documented By: DIANA Vital Signs Vital signs: Vital Signs - 8 hr 09/23/23 23:51 Temperature 97.1 F L Pulse Rate 71 Respiratory Rate 18 Blood Pressure 141/104 H Pulse Oximetry 100 Oxygen Delivery Method Room Air Medical Decision Making MDM Narrative Medical decision making narrative: Food bolus. Attempted carbonated drinks and motion at home. Patient was given nitroglycerin and glucagon in the emergency department with resolution of the obstruction. Patient was subsequently able to tolerate clear liquids and stated his pain had completely resolved. Patient was advised to follow a soft diet and avoid hard foods or meats for the next several days. He states that he was a primary care doctor's appointment in 2 days and will discuss this incident and further management with his PCP. Discharge Plan Departure Patient Disposition: Home Clinical Impression: Food bolus obstruction of intestine Instructions: Steakhouse Syndrome Activity Restrictions/Additional Instructions: Stick to soft foods for the next several days. Bring your endoscopy report from your previous food bolus to your primary care doctor's appointment on Monday. Prescriptions: No Action tamsulosin 0.4 mg capsule See Rx Instructions .ROUTE .COMPLEX Qty: 90 3RF Dose Instruction: TAKE 1 CAPSULE BY MOUTH AT BEDTIME Rx Instructions: TAKE 1 CAPSULE BY MOUTH AT BEDTIME tadalafil [Cialis] 10 mg tablet 10 mg PO DAILY Qty: 60 0RF atenolol 25 mg tablet 37.5 mg PO DAILY Qty: 135 0RF divalproex [Depakote] 250 mg tablet,delayed release (DR/EC) 250 mg PO BID Qty: 180 0RF omega-3 fatty acids [Fish Oil Concentrate] 1,000 mg capsule 1,000 mg PO DAILY green tea leaf extract [Green Tea] 250 mg capsule See Rx Instructions .ROUTE .COMPLEX Rx Instructions: inflammation resveratrol 50 mg capsule See Rx Instructions .ROUTE .COMPLEX Rx Instructions: anxiety and antiflammatory turmeric (bulk) [Curcumin] miscellaneous aspirin [Adult Aspirin Regimen] 81 mg tablet,delayed release (DR/EC) 81 mg PO DAILY multivitamin capsule 1 cap PO DAILY acetaminophen 500 mg tablet 1,000 mg PO Q6H Qty: 30 0RF ibuprofen 600 mg tablet 600 mg PO Q6H Qty: 20 0RF Rx Instructions: alternate with tylenol. Referrals: Chan Sheffield MD [Primary Care Provider] - Stand Alone Forms: Patient Portal/API
[2023-09-24] MEDS: GLUCAGON,HUMAN RECOMBINANT 1 MG/ML VIAL 2 MG IV (00:10)
--- NOTE | 2023-09-24 00:15 | PC.NURSE ---
pt given medication and immediately given jazmin lyric and pt started drinking, pt able to swallow jazmin lyric without difficulty states he feels like the steak went down, no vomiting
[2023-09-24 00:23] VITALS: BP 142/94; PULSE 70; RESP 18; O2SAT 96
== END 2023-09-24 00:32 | disposition home or self-care (01) ==
PROVIDERS: Emergency Provider Emergency Medicine; PCP Family Medicine
DX: K56.699 Other intestinal obstruction unspecified as to partial versus complete obstruction (principal)
CPT/HCPCS: 96374; 99284; J1610

== ENCOUNTER → 2023-09-29 08:19 | Outpatient (CLI) | payer MEDICARE, OTHER, SELFPAY ==
[2023-09-29 09:58] LABS: Add Manual Diff / Slide Review NO; Basophils Absolute Auto 0 /uL (0-100); Basophils Percent Auto 0.8 % (0-2); Eosinophils Absolute Auto 100 /uL (0-450); Eosinophils Percent Auto 3.3 % (2-4); Hematocrit 38.9 % (41-53); Hemoglobin 13.4 g/dL (13.5-17.5); Lymphocytes Absolute Auto 1700 /uL (1100-4500); Lymphocytes Percent Auto 43.8 % (25-40); Mean Corpuscular HGB Conc 34.3 % (30-36); Mean Corpuscular Hemoglobin 31.3 PG (26-34); Mean Corpuscular Volume 91.2 fL (80-100); Monocytes Absolute Auto 400 /uL (0-900); Monocytes Percent Auto 10.9 % (3-14); Neutrophils Absolute Auto 1600 /uL (1500-7000); Neutrophils Percent Auto 41.2 % (50-75); Platelet Count 103 X10^3/uL (150-400); Red Blood Cell Count 4.27 X10^6/uL (4.5-5.9); Red Cell Distribution Width 14.3 % (11.6-14.8)
[2023-09-29 10:22] LABS: Alanine Aminotransferase 14 IU/L (<50); Albumin 4.1 g/dL (3.5-5.0); Albumin Globulin Ratio 2.6 (1.0-2.8); Alkaline Phosphatase 49 U/L (38-126); Aspartate Aminotransferase 26 IU/L (17-59); BUN Creatinine Ratio 25.9 (6-22); Bilirubin Total 0.9 mg/dL (0.2-1.3); Blood Urea Nitrogen 21 mg/dL (9-20); Calcium 9.1 mg/dL (8.4-10.2); Carbon Dioxide 30 mmol/L (22-32); Chloride 108 mmol/L (98-107); Cholesterol 127 mg/dL (140-199); Estimated Glomerular Filt Rate > 60 mL/min (>60); Globulin 1.6 g/dL (1.7-4.1); Glucose 87 mg/dL (80-110); HDL Cholesterol 43 mg/dL (40-60); HEMOLYSIS < 15 (0-50); LDL Cholesterol Calculated 64 mg/dL (<100); Potassium 4.2 mmol/L (3.4-5.1); Sodium 141 mmol/L (137-145); Total Protein 5.7 g/dL (6.3-8.2); Triglycerides 99 mg/dL (35-150)
[2023-09-29 10:52] LABS: Prostate Specific Antigen Scrn 0.542 ng/mL (0.1-4.0)
[2023-09-29 10:56] LABS: TSH w/ Reflex to FT4 3.13 uIU/mL (0.47-4.68)
[2023-09-29 11:10] LABS: Hep C Virus Ab w/Reflex Quant NEGATIVE s/c (NEGATIVE)
[2023-09-29 11:56] LABS: Creatinine Urine Random 171.3 mg/dL
[2023-09-29 12:00] LABS: Microalbumin Urine Random < 0.6 mg/dL (0-1.6)
[2023-10-01 09:10] LABS: Apolipoprotein B 67 mg/dL (<90)
== END ==
PROVIDERS: PCP Family Medicine; Referring Provider Family Medicine; Visit Provider Family Medicine
DX: E78.5 Hyperlipidemia, unspecified (principal); Z12.5 Encounter for screening for malignant neoplasm of prostate; I10 Essential (primary) hypertension; R13.10 Dysphagia, unspecified
CPT/HCPCS: 36415; 80053; 80061; 82043; 82172; 82570; 84443; 85025; 86803; G0103

== ENCOUNTER 2023-11-10 11:15 | Outpatient (RCR) | payer MEDICARE, OTHER, SELFPAY ==
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
--- NOTE | 2023-11-08 14:56 | PT.OPPOC ---
Physical, Occupational & Speech Therapy At [facility] Current Diagnoses Pain in right leg (11/08/23) Other symptoms and signs involving the musculoskeletal system (11/08/23) Visit Care Team Role Provider Type Chan Sheffield MD Attending Provider Physician Family Provider Primary Care Provider Referring Provider Specialty: Family Practice Address: [address] [place] [address], [facility] Email: [email or web address] Plan Of Care PT-OP-T Assessment and Plan Start: 11/08/23 14:23 Freq: Status: Active Protocol: Document 11/08/23 13:45 DCW (Rec: 11/08/23 14:55 DCW [id number]) Physical Therapy Assessment Rehab Potential Rehabilitation Potential Excellent Evaluation Complexity Number of Personal Factors/Comorbidities 0 Number of Body Systems Impaired 1-2 Clinical Presentation at Evaluation Stable Impairments Impairments Activity Tolerance,Pain,ROM, Strength Goals Two Impairment Pt has to stop hiking after 1- 2 miles secondary to ankle pain Care Home Goal (LTG) Pt to report ability to hike for 5 miles without increased ankle pain LTG Duration 01/08/24 One Impairment Pt does not have an appropriate home exercise program Short Term Goal (STG) Pt to be independent and compliant with an appropriate HEP STG Duration 12/09/23 Assessment Summary Assessment Pt presents with signs and symptoms consistent with general weakness and deconditioning of right ankle 6 month s/p fibular fracture. Pt demonstrates appropriate ROM and muscle tone, but with higher-intensity activities like hiking, pt experiences ankle fatigue and weakness. Testing today did uncover MMT 4-/5 of plantar flexion. Pt will likely benefit from skilled therapy focusing on strengthening and stabilization of ankle, as well as continued time to allow for recovery from injury . Pt appears to be very motivated with home exercise to return to prior function. Will likely benefit from HEP and working on balance to help improve ankle stability. Physical Therapy Plan Frequency and Duration Frequency of Treatment 2x/Week Plan of Care Start Date 11/08/23 Plan of Care End Date 01/08/24 Therapeutic Interventions Therapeutic Interventions Balance Training,Gait Training ,Home Exercise Program,Joint Mobilizations,Manual Therapy, Neuromuscular Re-education, Patient/Caregiver Education, Self-Care/Home Management,Soft Tissue Mobilization, Therapeutic Activities, Therapeutic Exercises Next Visit Focus/Plan Next Note Type Treatment Note Next Visit Plan Review and adjust HEP, trial of ankle stabilization exercises/balance challenges Plan of Care Dates Plan of Care Start Date 11/08/23 Plan of Care End Date 01/08/24 Electronically Signed by: Richard Quinones, PT 11/08/23 [id number] If you are in agreement with this Plan of Care, please return a signed and dated copy. I have reviewed this Plan of Care and certify that the skilled therapy services above are required to meet the patient?s needs. Physician Signature Date Printed Name and Credentials Clinical Instructor Signature Printed Name and Credentials
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
== END 2023-11-13 13:57 | disposition home or self-care (01) ==
LOC: PHYS 11:15
PROVIDERS: Family Provider Family Medicine; PCP Family Medicine; Referring Provider Family Medicine; Visit Provider Family Medicine
DX: M79.604 Pain in right leg (principal); R29.898 Other symptoms and signs involving the musculoskeletal system
CPT/HCPCS: 97110; 97140; 97161

== ENCOUNTER 2023-12-26 18:54 | Emergency (ER) | payer MEDICARE, OTHER, SELFPAY ==
[2023-12-26 19:09] VITALS: BP 131/67; PULSE 64; RESP 16; TEMP 37.1; O2SAT 97; BMI 26.6
--- NOTE | 2023-12-26 19:18 | DI.RAD.S_ITS ---
PROCEDURE: XR ELBOW RT MIN 3V INDICATIONS: pain TECHNIQUE: 3 views of the elbow were acquired. COMPARISON: None. FINDINGS: Bones: No fractures or dislocations. No suspicious bony lesions. Soft tissues: No elbow joint effusion. No suspicious soft tissue calcifications. IMPRESSION: No acute elbow fracture or dislocation. No significant joint effusion. Dictated by: Cameron Covarrubias M.D. on 12/26/2023 at 19:48 Approved by: Cameron Covarrubias M.D. on 12/26/2023 at 19:50
--- NOTE | 2023-12-26 19:18 | DI.RAD.S_ITS ---
PROCEDURE: XR ANKLE RT MIN 3V INDICATIONS: pain TECHNIQUE: 3 views of the ankle were acquired. COMPARISON: None. FINDINGS: Bones: Age indeterminate deformity involving distal fibular shaft is seen. Bony fragment adjacent to tip of medial malleolus is seen suggestive of old injury. Ankle mortise is normally aligned. No suspicious bony lesions. Soft tissues: Small to moderate amount of joint effusion is seen. Achilles tendon appears normal. IMPRESSION: Age indeterminate injury involving distal fibular shaft. Likely old injury involving tip of medial malleolus. Ankle mortise is congruent. Small to moderate joint effusion. Dictated by: Cameron Covarrubias M.D. on 12/26/2023 at 19:52 Approved by: Cameron Covarrubias M.D. on 12/26/2023 at 19:54
--- NOTE | 2023-12-26 19:20 | DI.RAD.S_ITS ---
PROCEDURE: XR KNEE LT 3V INDICATIONS: pain swelling TECHNIQUE: 3 views of the knee were acquired. COMPARISON: None. FINDINGS: Bones: No fractures or dislocations. Mild tricompartmental osteoarthritis is seen. No patellar subluxation. No suspicious bony lesions. Soft tissues: No joint effusion. No suspicious soft tissue calcifications. IMPRESSION: No acute left knee fracture or dislocation. Mild tricompartmental osteoarthritis. No significant joint effusion. Dictated by: Cameron Covarrubias M.D. on 12/26/2023 at 19:50 Approved by: Cameron Covarrubias M.D. on 12/26/2023 at 19:52
[2023-12-26] MEDS: OXYCODONE/ACETAMINOPHEN 5/325 TABLET 1 TAB PO (20:35)
[2023-12-26] MEDS: BACITRACIN OINT 0.9 GM PCKT 10 APPLIC TOP (20:35)
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
[2023-12-26] MEDS: OXYCODONE/APAP 5/325 PREPACK 1 BOTTLE MISC (21:39)
== END 2023-12-26 21:48 | disposition home or self-care (01) ==
PROVIDERS: Emergency Provider Emergency Medicine; Family Provider Family Medicine; PCP Family Medicine
DX: S93.401A Sprain of unspecified ligament of right ankle, initial encounter (principal); S50.811A Abrasion of right forearm, initial encounter; S80.811A Abrasion, right lower leg, initial encounter; V29.99XA Rider (driver) (passenger) of other motorcycle injured in unspecified traffic accident, initial encounter
CPT/HCPCS: 73080; 73562; 73610; 99283

== ENCOUNTER 2023-12-29 12:12 | Emergency (ER) | payer MEDICARE, OTHER, SELFPAY ==
[2023-12-29] VITALS (7 sets, daily range): BP systolic 110–138; BP diastolic 56–61; PULSE 59–66; RESP 15; TEMP 36.7; O2SAT 96–99; BMI 26.6
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
== END 2023-12-29 14:13 | disposition home or self-care (01) ==
PROVIDERS: Emergency Provider Emergency Medicine; Family Provider Family Medicine; PCP Family Medicine
DX: L03.115 Cellulitis of right lower limb (principal)
CPT/HCPCS: 93971; 99283

== ENCOUNTER 2024-01-01 12:49 | Observation (INO) | payer MEDICARE, OTHER, SELFPAY ==
[2024-01-01 13:15] VITALS: BP 144/62; PULSE 53; RESP 18; TEMP 36.9; O2SAT 100; BMI 26.6
--- NOTE | 2024-01-01 13:29 | DI.RAD.S_ITS ---
PROCEDURE: XR CHEST 1V INDICATIONS: suspected sepsis TECHNIQUE: One view of the chest was acquired. COMPARISON: [facility], CR, XR CHEST 1V, 08/21/2020, 13:07. FINDINGS: Surgical changes and devices: None. Lungs and pleura: Lungs are clear. No pleural effusions or pneumothorax. Mediastinum: Mediastinal contours appear normal. Heart size is normal. Bones and chest wall: No suspicious bony lesions. Overlying soft tissues appear unremarkable. IMPRESSION: No acute pulmonary process. Dictated by: Yvonne Henderson M.D. on 01/01/2024 at 13:48 Approved by: Yvonne Henderson M.D. on 01/01/2024 at 13:49
[2024-01-01] MEDS: SODIUM CHLORIDE 0.9% 1,000 ML 1000 ML IV (14:00)
[2024-01-01 14:04] LABS: Add Manual Diff / Slide Review NO; Basophils Absolute Auto 0 /uL (0-100); Basophils Percent Auto 0.2 % (0-2); Eosinophils Absolute Auto 100 /uL (0-450); Eosinophils Percent Auto 2.1 % (2-4); Hematocrit 33.3 % (41-53); Hemoglobin 11.4 g/dL (13.5-17.5); Lymphocytes Absolute Auto 1200 /uL (1100-4500); Lymphocytes Percent Auto 25.3 % (25-40); Mean Corpuscular HGB Conc 34.4 % (30-36); Mean Corpuscular Hemoglobin 31.7 PG (26-34); Mean Corpuscular Volume 92.2 fL (80-100); Monocytes Absolute Auto 600 /uL (0-900); Neutrophils Absolute Auto 2900 /uL (1500-7000); Neutrophils Percent Auto 59.4 % (50-75); Platelet Count 108 X10^3/uL (150-400); Red Blood Cell Count 3.61 X10^6/uL (4.5-5.9); Red Cell Distribution Width 14.7 % (11.6-14.8); White Blood Cell Count 4.9 X10^3/uL (4.5-11.0)
--- NOTE | 2024-01-01 14:06 | EKG_ITS ---
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
[2024-01-01 14:11] LABS: INR 1.1 (0.9-1.3); Prothrombin Time 12.3 SECONDS (9.4-12.5)
[2024-01-01 14:14] LABS: PTT Partial Thromboplastin Tim 32 SECONDS (25.1-36.5)
[2024-01-01 14:15] LABS: Alanine Aminotransferase 18 IU/L (<50); Albumin 3.9 g/dL (3.5-5.0); Albumin Globulin Ratio 1.8 (1.0-2.8); Alkaline Phosphatase 46 U/L (38-126); Aspartate Aminotransferase 33 IU/L (17-59); BUN Creatinine Ratio 27.7 (6-22); Bilirubin Total 1.1 mg/dL (0.2-1.3); Blood Urea Nitrogen 23 mg/dL (9-20); Calcium 8.5 mg/dL (8.4-10.2); Carbon Dioxide 25 mmol/L (22-32); Chloride 106 mmol/L (98-107); Estimated Glomerular Filt Rate > 60 mL/min (>60); Globulin 2.2 g/dL (1.7-4.1); Glucose 99 mg/dL (80-110); HEMOLYSIS < 15 (0-50); Lipase 60 U/L (23-300); Potassium 4.6 mmol/L (3.4-5.1); Sodium 136 mmol/L (137-145); Total Protein 6.1 g/dL (6.3-8.2)
[2024-01-01 14:16] LABS: Lactate (Lactic Acid) 0.9 mmol/L (0.7-2.1)
[2024-01-01 14:32] LABS: Procalcitonin 0.108 ng/mL (<0.5)
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
--- NOTE | 2024-01-01 16:20 | DI.CT.S_ITS ---
PROCEDURE: CT LE RT W CON INDICATIONS: ?R LE abscess TECHNIQUE: After the administration of intravenous contrast, 3 mm axial sections acquired of the right lower leg from the level of mid femoral shaft to bottom of right foot, with coronal and sagittal reformats. COMPARISON: [facility], CR, XR ANKLE RT MIN 3V, 12/26/2023, 19:20. FINDINGS: Image quality: Excellent. Bones: Alignment of included right lower extremity is anatomic. Mild tricompartmental osteoarthritis in right knee is seen. Osteoarthritic changes also noted throughout right foot . Subacute to chronic appearing fracture through distal fibular shaft is seen with up to 3 mm diastasis at fracture site and partial bony union. There is also suggestion of a nondisplaced oblique fracture involving anterior and lateral aspect of distal tibia extending to anterolateral aspect of distal tibial plafond best seen on series 4 image 88. No other fracture or dislocation is seen. No suspicious bony lesions. No cortical erosion or abnormal periosteal reaction is seen. Soft tissues: There is subcutaneous soft tissue edema and swelling along posterior and lateral aspect of distal thigh , around right knee and right lower leg and extending to right ankle and foot. No discrete drainable peripherally enhancing fluid collection. No abnormal soft tissue calcifications or calcified intra-articular loose bodies. No subcutaneous emphysema. No area of abnormal intramuscular enhancement. IMPRESSION: 1. Acute nondisplaced fracture involving anterolateral aspect of distal tibia extending to distal tibial plafond. 2. Subacute to chronic appearing oblique fracture involving distal fibular shaft and lateral malleolus with partial bony union at fracture site. Old injury involving tip of medial malleolus with well corticated bony fragment. No other fracture or dislocation is seen. 3. Suggestion of extensive cellulitis in posterior and lateral aspect of distal thigh, around right knee and ankle joint and extending to involve right ankle and foot. No discrete drainable abscess collection. No enhancing soft tissue mass or abnormal soft tissue calcifications. 4. No CT evidence of osteomyelitis. Osteoarthritic changes throughout right knee, ankle and foot. Dictated by: Cameron Covarrubias M.D. on 01/01/2024 at 17:10 Approved by: Cameron Covarrubias M.D. on 01/01/2024 at 17:23
--- NOTE | 2024-01-01 16:23 | PC.NURSE ---
right leg is swollen . abscess by inner right knee. hard and swollen. PA used ultrasound to view.
[2024-01-01] MEDS: VANCOMYCIN 1,250 MG/250 ML PIGGYBACK 250 MG IV (18:08)
[2024-01-01 18:33] VITALS: BP 130/60; PULSE 64; RESP 17; O2SAT 99
[2024-01-01] MEDS: BACITRACIN OINT 0.9 GM PCKT 1 APPLIC TOP (18:34)
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
[2024-01-01 19:00] VITALS: BP 149/72; PULSE 60; RESP 18; TEMP 37.3; O2SAT 100
[2024-01-01 19:47] VITALS: BMI 26.6
[2024-01-01] MEDS: cefTRIAXone 2,000 MG in SODIUM CHLORIDE 0.9% 100 ML 200 MG IV (20:11)
[2024-01-01] MEDS: OXYCODONE IR 5 MG TABLET 10 MG PO (20:19)
[2024-01-01] MEDS: ACETAMINOPHEN 325 MG TABLET 650 MG PO (20:19)
[2024-01-01] MEDS: DIVALPROEX DR 250 MG TABLET PO (21:03)
[2024-01-01] MEDS: HEPARIN 5,000 UNIT/ML VIAL 5000 UNIT SUBCUT (21:03)
[2024-01-01] MEDS: CALCIUM CARBONATE 500 MG TAB PO (22:09)
[2024-01-02] MEDS: OXYCODONE/ACETAMINOPHEN 5/325 TABLET 1 TAB PO (00:09)
[2024-01-02 04:01] VITALS: BP 110/64; PULSE 69; RESP 16; TEMP 36.9; O2SAT 98
[2024-01-02] MEDS: OXYCODONE IR 5 MG TABLET 10 MG PO ×4 (04:01→22:19)
--- NOTE | 2024-01-02 05:09 | PC.NURSE ---
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 Patient is AxOx4, ambulatory with 1PA & FWW. Arrived with ortho boot, however removed and requested to have it off while in bed. Educated patient to not bear weight on right foot. CMS intact. Right leg is red and swollen, no drainage noted. Pain in right leg is controlled w/ ordered pain medications, ice pack placed for comfort. Oriented to call-light. Family at bedside and assists with care. Plan of care ongoing.
[2024-01-02] MEDS: VANCOMYCIN 1,000 MG/200 ML PIGGYBACK 200 MG IV ×2 (05:38→18:03)
[2024-01-02 07:03] LABS: Add Manual Diff / Slide Review NO; Basophils Absolute Auto 0 /uL (0-100); Basophils Percent Auto 0.3 % (0-2); Eosinophils Absolute Auto 100 /uL (0-450); Eosinophils Percent Auto 4.2 % (2-4); Hematocrit 25.4 % (41-53); Hemoglobin 8.8 g/dL (13.5-17.5); Lymphocytes Absolute Auto 1000 /uL (1100-4500); Lymphocytes Percent Auto 32.9 % (25-40); Mean Corpuscular HGB Conc 34.7 % (30-36); Mean Corpuscular Hemoglobin 31.6 PG (26-34); Mean Corpuscular Volume 91.2 fL (80-100); Monocytes Absolute Auto 400 /uL (0-900); Monocytes Percent Auto 13.4 % (3-14); Neutrophils Absolute Auto 1500 /uL (1500-7000); Neutrophils Percent Auto 49.2 % (50-75); Platelet Count 92 X10^3/uL (150-400); Red Blood Cell Count 2.78 X10^6/uL (4.5-5.9); Red Cell Distribution Width 14.6 % (11.6-14.8); White Blood Cell Count 3.1 X10^3/uL (4.5-11.0)
[2024-01-02 07:19] LABS: BUN Creatinine Ratio 26.6 (6-22); Blood Urea Nitrogen 21 mg/dL (9-20); Calcium 7.6 mg/dL (8.4-10.2); Carbon Dioxide 23 mmol/L (22-32); Chloride 110 mmol/L (98-107); Estimated Glomerular Filt Rate > 60 mL/min (>60); Glucose 90 mg/dL (80-110); HEMOLYSIS < 15 (0-50); Potassium 4.1 mmol/L (3.4-5.1); Sodium 136 mmol/L (137-145)
[2024-01-02 08:00] VITALS: BP 127/73; PULSE 66; RESP 16; TEMP 37.3; O2SAT 99
[2024-01-02] MEDS: cefTRIAXone 2,000 MG in SODIUM CHLORIDE 0.9% 100 ML 200 MG IV (08:14)
[2024-01-02] MEDS: atenoloL 25 MG TABLET 37.5 MG PO (08:15)
[2024-01-02] MEDS: HEPARIN 5,000 UNIT/ML VIAL 5000 UNIT SUBCUT ×2 (08:15→20:30)
[2024-01-02] MEDS: MULTIVITAMIN 1 TABLET 1 TAB PO (08:16)
[2024-01-02] MEDS: DULOXETINE 20 MG CAPSULE 40 MG PO (08:16)
[2024-01-02] MEDS: ASPIRIN EC 81 MG TABLET PO (08:16)
[2024-01-02] MEDS: FISH OIL 1,000 MG CAPSULE 1000 MG PO (08:16)
--- NOTE | 2024-01-02 10:40 | PC.RNWOUND ---
Late Entry: Admission photos taken by Carol. KENDELL
--- NOTE | 2024-01-02 11:04 | DI.US.S_ITS ---
PROCEDURE: US EXTREMITY NONVASC LOWER LT INDICATIONS: Focal redness and swelling TECHNIQUE: Real-time scanning was performed of the right extremity soft tissue at the area of concern , with image documentation. COMPARISON: None. FINDINGS: Head at the area of concern in the right extremity in the subcutaneous tissues, there is a complex hypoechogenicity measuring at 3.0 x 1.9 x 2.0 cm IMPRESSION: Nonspecific hypoechogenicity noted in the subcutaneous tissues at the area of concern. Given recent trauma, this could reflect soft tissue hematoma. Additionally, focal infection and developing abscess could have a similar appearance. Approved by: Zeferino Kenyon M.D. on 01/02/2024 at 16:42
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
[2024-01-02] MEDS: ONDANSETRON 4 MG ODT SL (17:07)
[2024-01-02 19:00] VITALS: BP 132/75; PULSE 60; RESP 18; TEMP 36.8; O2SAT 99
[2024-01-02] MEDS: DIVALPROEX DR 250 MG TABLET PO (20:30)
[2024-01-02] MEDS: SODIUM CHLORIDE 0.9% FLUSH 10 ML IV (20:31)
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
[2024-01-03] MEDS: VANCOMYCIN TROUGH 1 REQUEST MISC (05:51)
[2024-01-03] MEDS: VANCOMYCIN 1,000 MG/200 ML PIGGYBACK 200 MG IV (05:55)
[2024-01-03] MEDS: SODIUM CHLORIDE 0.9% FLUSH 10 ML IV (05:55)
[2024-01-03] MEDS: SODIUM CHLORIDE 0.9% 250 ML 21 ML IV (05:55)
[2024-01-03 05:59] LABS: Add Manual Diff / Slide Review NO; Basophils Absolute Auto 0 /uL (0-100); Basophils Percent Auto 0.3 % (0-2); Eosinophils Absolute Auto 200 /uL (0-450); Eosinophils Percent Auto 4.4 % (2-4); Hematocrit 27.5 % (41-53); Hemoglobin 9.7 g/dL (13.5-17.5); Lymphocytes Absolute Auto 1400 /uL (1100-4500); Lymphocytes Percent Auto 37.3 % (25-40); Mean Corpuscular HGB Conc 35.2 % (30-36); Mean Corpuscular Hemoglobin 31.8 PG (26-34); Mean Corpuscular Volume 90.1 fL (80-100); Monocytes Absolute Auto 500 /uL (0-900); Neutrophils Absolute Auto 1600 /uL (1500-7000); Platelet Count 101 X10^3/uL (150-400); Red Blood Cell Count 3.05 X10^6/uL (4.5-5.9); Red Cell Distribution Width 14.4 % (11.6-14.8); White Blood Cell Count 3.7 X10^3/uL (4.5-11.0)
[2024-01-03] MEDS: HYDROMORPHONE 0.5 MG INJ IV (06:02)
[2024-01-03 06:11] LABS: BUN Creatinine Ratio 20.5 (6-22); Blood Urea Nitrogen 17 mg/dL (9-20); Calcium 7.8 mg/dL (8.4-10.2); Carbon Dioxide 25 mmol/L (22-32); Chloride 107 mmol/L (98-107); Estimated Glomerular Filt Rate > 60 mL/min (>60); Glucose 94 mg/dL (80-110); HEMOLYSIS < 15 (0-50); Potassium 4.1 mmol/L (3.4-5.1); Sodium 135 mmol/L (137-145)
[2024-01-03 06:27] LABS: Vancomycin Trough 7.1 ug/mL (10-20)
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
[2024-01-03 08:00] VITALS: BP 114/62; PULSE 61; RESP 18; TEMP 36.6; O2SAT 96
[2024-01-03] MEDS: cefTRIAXone 2,000 MG in SODIUM CHLORIDE 0.9% 100 ML 200 MG IV (08:58)
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
--- NOTE | 2024-01-03 11:27 | PC.NURSE ---
Pt is dressed and ready for discharge home with S.O. IV has been removed. Went over d/c instructions with Pt and Juany, discussed d/c meds, time of last dose, reviewed stroke education, discussed d/c of infection, follow up with Ortho and his PCP, no driving, drink plenty of fluids to prevent constipation or dehydration, and elevating and icing his right leg. Pt denied further questions and was taken out via w/c by [employer] to POV with S.O. and all belongings.
--- NOTE | 2024-01-03 11:37 | CM.DPC ---
DCP Discharge Home Per MD, no I&D needed at this time and pt's infection improved with IV-Abx and pt will be able to discharge home today on PO abx and boot for walking and outpt f/u with Ortho. No identified barriers to discharge at this time. Per RN, discharge instructions provided and no concerns noted and pt taken to POV. SONA Borja
--- NOTE | 2024-01-09 07:24 | PC.NURSE ---
Late Entry: Ceftriaxone infusion initated 12/31 at 2010 complete at 2042. Ceftriaxone infusion initiated 01/02 at 0858 complete at 0929.
== END 2024-01-03 11:30 | disposition home or self-care (01) ==
LOC: ED 18:28 → AC 19:08
PROVIDERS: Emergency Medicine; Admitting Provider Hospitalist; Emergency Provider Student in an Organized Health Care Education/Training Program; Family Provider Family Medicine; PCP Family Medicine; Referring Provider Student in an Organized Health Care Education/Training Program; Visit Provider Hospitalist
DX: L03.115 Cellulitis of right lower limb (principal); S82.301D Unspecified fracture of lower end of right tibia, subsequent encounter for closed fracture with routine healing; S82.61XD Displaced fracture of lateral malleolus of right fibula, subsequent encounter for closed fracture with routine healing; S50.811D Abrasion of right forearm, subsequent encounter; V29.99XD Rider (driver) (passenger) of other motorcycle injured in unspecified traffic accident, subsequent encounter; Y92.9 Unspecified place or not applicable; I10 Essential (primary) hypertension; E78.5 Hyperlipidemia, unspecified
CPT/HCPCS: 36415; 71045; 73701; 76882; 80048; 80053; 80202; 83605; 83690; 84145; 85025; 85610; 85730; 87040; 93005; 93971; 96361; 96365; 96366; 96367; 96375; 99283; 99284; G0378; A9270; J0696; J1170; J1644; Q9967

== ENCOUNTER 2024-01-05 10:35 | Observation (INO) | payer MEDICARE, OTHER, SELFPAY ==
[2024-01-05] VITALS (10 sets, daily range): BP systolic 99–184; BP diastolic 56–87; PULSE 55–80; RESP 12–18; TEMP 36.2–37; O2SAT 94–100; BMI 26.6
[2024-01-05] MEDS: HYDROMORPHONE 0.5 MG INJ IV ×2 (12:12→16:35)
[2024-01-05] MEDS: LACTATED RINGERS 1,000 ML 100 ML IV (12:16)
[2024-01-05] MEDS: LACTATED RINGERS 1,000 ML 42 ML IV (17:10)
--- NOTE | 2024-01-05 17:14 | PM.PREOP ---
Pre-operative Note Interval Note History & Physical reviewed/Exam performed by Physician: Yes Changes to H&P: No H&P completed within 30 days and has changed as indicated here:: Please see Dr. Salinas's clinic note from earlier today for complete details this patient's presentation. I plan to aid with incision and debridement of the calf abscess this evening. Patient was seen in the preoperative holding area. I discussed the risks and benefits of this procedure with him in detail. In particular I think there is a high risk of infection recurrence which could necessitate further surgery. We will tailor antibiotics to cultures. We will plan to move forward with the debridement this evening
[2024-01-05] MEDS: CEFAZOLIN 2 GM/100 ML PREMIX 100 ML IV (17:53)
[2024-01-05 18:11] LABS: MRSA (Nasal) PCR NOT DETECTED (Not Detect)
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
--- NOTE | 2024-01-05 18:18 | SUR.OPER ---
pt. presents with scab on left knee, scabs on lower right leg aknee and thigh plus right elbow.
--- NOTE | 2024-01-05 18:21 | SUR.OPER ---
Supine on padded OR bed, head on pillow, arms secured on padded arm boards at <90 degrees abduction, legs uncrossed, safety belt at waist, tape over blanket over lower left leg, right leg draped free..
[2024-01-05] MEDS: BUPIVACAINE 0.25% (PF) 30 ML, EPINEPHrine 0.15 MG INJ (18:29)
[2024-01-05] MEDS: OXYCODONE IR 5 MG TABLET PO ×2 (18:46→22:28)
[2024-01-05] MEDS: DOCUSATE 100 MG CAPSULE PO (21:05)
[2024-01-05] MEDS: SENNOSIDES 8.6 MG TABLET 17.2 MG PO (21:05)
[2024-01-05] MEDS: DIVALPROEX DR 250 MG TABLET PO (21:05)
[2024-01-05] MEDS: HEPARIN 5,000 UNIT/ML VIAL 5000 UNIT SUBCUT (21:05)
[2024-01-05] MEDS: ACETAMINOPHEN 325 MG TABLET 650 MG PO (22:28)
[2024-01-06] MEDS: LACTATED RINGERS 1,000 ML 100 ML IV (01:14)
[2024-01-06] MEDS: OXYCODONE IR 5 MG TABLET PO ×2 (01:58→07:06)
[2024-01-06] MEDS: VANCOMYCIN 1,000 MG/200 ML PIGGYBACK 200 MG IV (01:58)
[2024-01-06 04:31] VITALS: BP 132/76; PULSE 78; RESP 18; TEMP 36.6; O2SAT 98
[2024-01-06 05:02] LABS: Add Manual Diff / Slide Review NO; Basophils Absolute Auto 0 /uL (0-100); Basophils Percent Auto 0.2 % (0-2); Eosinophils Absolute Auto 200 /uL (0-450); Eosinophils Percent Auto 4.3 % (2-4); Hematocrit 26.7 % (41-53); Hemoglobin 9.5 g/dL (13.5-17.5); Lymphocytes Absolute Auto 1400 /uL (1100-4500); Lymphocytes Percent Auto 37.8 % (25-40); Mean Corpuscular HGB Conc 35.5 % (30-36); Mean Corpuscular Hemoglobin 32.4 PG (26-34); Mean Corpuscular Volume 91.2 fL (80-100); Monocytes Absolute Auto 500 /uL (0-900); Monocytes Percent Auto 12.4 % (3-14); Neutrophils Absolute Auto 1700 /uL (1500-7000); Neutrophils Percent Auto 45.3 % (50-75); Platelet Count 113 X10^3/uL (150-400); Red Blood Cell Count 2.92 X10^6/uL (4.5-5.9); Red Cell Distribution Width 14.9 % (11.6-14.8); White Blood Cell Count 3.7 X10^3/uL (4.5-11.0)
[2024-01-06 05:12] LABS: BUN Creatinine Ratio 20.3 (6-22); Blood Urea Nitrogen 16 mg/dL (9-20); Calcium 7.8 mg/dL (8.4-10.2); Carbon Dioxide 26 mmol/L (22-32); Chloride 108 mmol/L (98-107); Estimated Glomerular Filt Rate > 60 mL/min (>60); Glucose 85 mg/dL (80-110); HEMOLYSIS < 15 (0-50); Potassium 4.1 mmol/L (3.4-5.1); Sodium 137 mmol/L (137-145)
[2024-01-06] MEDS: ACETAMINOPHEN 325 MG TABLET 650 MG PO (07:05)
[2024-01-06 08:03] VITALS: BP 139/63; PULSE 82; RESP 18; TEMP 36.7; O2SAT 100
[2024-01-06] MEDS: DOCUSATE 100 MG CAPSULE PO (08:32)
[2024-01-06] MEDS: DULOXETINE 20 MG CAPSULE 40 MG PO (08:32)
[2024-01-06] MEDS: polyethylene glycoL 3350 17 GM POWD.PACK PO (08:33)
[2024-01-06] MEDS: HEPARIN 5,000 UNIT/ML VIAL 5000 UNIT SUBCUT (08:33)
[2024-01-06] MEDS: atenoloL 25 MG TABLET 37.5 MG PO (08:33)
[2024-01-06] MEDS: ASPIRIN EC 81 MG TABLET PO (08:33)
[2024-01-06] MEDS: HYDROMORPHONE 0.5 MG INJ IV (10:33)
--- NOTE | 2024-01-06 11:00 | PT.IIE ---
Surgery Performed Operation Date: 01/05/24 17:45 Actual Procedures p Incision and Drainage leg abscess(Right) - Renetta Salinas MD Surgical History (Last Reviewed 01/03/24 @ 07:27 by Iain Cerrato MD) History of surgery (12/23/17) Hx of bilateral cataract extraction (~2016) Hx of knee surgery (02/07/17) S/P hernia surgery (~2019) S/P hernia surgery Medical History (Last Reviewed 01/03/24 @ 07:27 by Iain Cerrato MD) BPH (benign prostatic hyperplasia) Cerebellar ataxia Diverticulosis GERD (gastroesophageal reflux disease) Gout Hernia, inguinal, right Hyperlipidemia Hypertension Hypoglycemia Thrombocytopenia Vertigo Physical Therapy Inpatient Evaluation/Re-Eval M1 PT/OT-IP Prior Functional Status Start: 01/06/24 13:39 Freq: NEEDED Status: Active Protocol: Document 01/06/24 11:00 AB (Rec: 01/06/24 13:51 AB [id number]) Medical Review Prior Functional Status Medical History Reviewed Yes Communication able to make needs known Mobility and Gait pt stated that he was independent with all mobilities and ambulation without AD Social History Household Members spouse,none Living Arrangements House Number of Floors (Floors) One Floor Number of Stairs To Enter/Railing? 2 steps L rail ascending Home Environment Standard Height Toilet,Tub/ Shower Home Equipment Front Wheel Walker,Crutches, Grab Bars Near Toilet,Grab Bars In Shower M2 PT-IP Current Condition Start: 01/06/24 13:39 Freq: NEEDED Status: Active Protocol: Document 01/06/24 11:00 AB (Rec: 01/06/24 13:51 AB [id number]) Physical Therapy Current Condition Current Condition Evaluation Date 01/06/24 Treatment Diagnosis R calf abscess s/p I&D; difficulty in walking Onset Date 01/05/24 M3 PT-IP Subjective Start: 01/06/24 13:39 Freq: NEEDED Status: Active Protocol: Document 01/06/24 11:00 AB (Rec: 01/06/24 13:51 AB [id number]) Subjective Physical Therapy Visit Type Type Initial Evaluation Visit Start Time 11:00 Visit Stop Time 11:30 Number of [employer] APPRENTICE Visits 0 Therapy Pain Assessment Pain When Pain Assessed At Rest Pain Present Pain Present Pain Reported Location RIGHT LEG Intensity 7 Scale Used Numeric (0 - 10) Pain Management Techniques Distraction,Modification of Treatment,Re-positioning, Timing of Activity with Medications M4 PT-IP Mobility and Gait Start: 01/06/24 13:39 Freq: NEEDED Status: Active Protocol: Document 01/06/24 11:00 AB (Rec: 01/06/24 13:51 AB [id number]) PT-Bed Mobility Assessment Supine to Sit Supine to Sit Independent Sit to Supine Sit to Supine Independent PT-Transfer Assessment Sit to and From Stand Sit to and from Stand Standby Assistance Equipment Transfer Assistive Device Front Wheeled Walker Orthotic/Prosthetic Devices or Brace: No Transfers Transfer Destination Bed,Chair Transfer Technique ambulated Transfer Ability Level of Assist Standby Assistance,Use of Upper Extremities Comments Mobility Comments pt sitting on the chair and spouse in room. initially refusing PT and stated that if it is going to delay his d/c. informed pt and spouse regarding PT order and rationale and pt agreed to do PT. obtained PLOF and home set up. informed pt regarding TTWB on RLE and pt aware but stated that he prefer to do NWB. pt completed sit to stand SBA and ambulated in room ~ 30 ft using FWW SBA. pt able to maintain NWB on RLE and with no LOB. pt agreed to do stairs. pt completed up/down platform step using bilateral crutches CGA and cues. spouse able to assist pt when needed. pt ambulated back to his chair. positioned pt on the chair. call light and table placed within reach. pt stated that they borrowed a walker from his friend. educated pt and spouse on proper adjustment on the walker and understood. Gait Assessment Gait Gait Assistance Required: Standby Assistance Distance (Feet) 30 Able to Maintain Weight Bearing Status Yes During Gait Assistive Devices Orthotic/Prosthetic Devices or Brace: No Factors Limiting Gait Function Factors Limiting Gait Function Decreased Activity Tolerance, Decreased Strength,Limited Range of Motion,Pain,Poor Balance,Poor Safety Awareness Stair Climbing Assessment Evaluation Level of Assist On Stairs Contact Guard Assistance,1 Person Assistance Devices Stair Climbing Assistive Devices Axillary Crutches Technique/Endurance Stair Climbing Direction Ascend and Descend Stair Climbing Technique Step to Step Number of Steps Climbed 1 Query Text: Stair Climbing Set # Repetitions (reps) 3 PT-Balance Assessment Sitting Balance and Reactions Static Sitting Balance Ability Normal Dynamic Sitting Balance Ability Normal Standing Balance and Reactions Static Standing Balance Ability Fair Dynamic Standing Balance Ability Fair Device Used FWW M5 PT-IP Objective Assessments Start: 01/06/24 13:39 Freq: NEEDED Status: Active Protocol: Document 01/06/24 11:00 AB (Rec: 01/06/24 13:51 AB [id number]) Orientation Orientation/Cognition Level of Alertness Alert Orientation Name,Age,Birthday,Place, Situation Language Function Ability No Deficits Noted Safety Awareness Understands Safety Issues Memory Description No Deficits Noted Gross Range of Motion Lower Extremity ROM Assessment Right Impaired Impairments R ankle with dressing Muscle Tone Muscle Tone WNL Yes M6 PT-IP Treatment Start: 01/06/24 13:39 Freq: NEEDED Status: Active Protocol: Document 01/06/24 11:00 AB (Rec: 01/06/24 13:51 AB [id number]) Physical Therapy Treatment Education Education Provided Weight Bearing Status,Safety M7 PT-IP Assessment and Plan Start: 01/06/24 13:39 Freq: NEEDED Status: Active Protocol: Document 01/06/24 11:00 AB (Rec: 01/06/24 13:51 AB [id number]) PT Summary Assessment and Plan Potential Rehabilitation Potential Fair Status of Condition at Evaluation Stable Summary Impairments Pain,ROM,Strength,Balance, Coordination,Sensation,Tone, Cognition,Bed Mobility, Transfers,Gait,Activity Tolerance Assessment Summary pt is a 73 y/o M with R calf deep abscess and underwent incision drainage and debridement. pt also found to have a distal tibial fx. pt is NWB on RLE. pt requiring SBA with mobility using FWW and able to do stair climbing using crutches CGA. spouse will be able to assist pt at home. pt may go home when medically stable. Goals Bed Mobility Goal Independent Transfer Goal Independent,Front Wheeled Walker Gait Goal Independent,Front Wheel Walker Gait Distance 100 Days to Meet Goals 3 Frequency of Treatment Frequency Of Treatment Once a Day Treatment Plan Physical Therapy Treatment Plan Bed Mobility Training,Transfer Training,Gait Training, Therapeutic Exercise,Balance Retraining,Post Op Education, Discharge Planning,Hot or Cold Pack,Neuromuscular Re-ed, Coordination Retraining,Manual Therapy Weight Bearing Status Weight Bearing Status Non-Weight Bearing Allowed Weight Bearing Amount (enter % RLE NWB or #) (%) Recommendations To Nursing Amount of Assist Needed Standby Assistance Discharge Recommendations PT Discharge Recommendations Home with Assistance, Outpatient PT Transportation Needs at Discharge Private Vehicle
--- NOTE | 2024-01-06 11:03 | PM.DS.1 ---
History of Present Illness History of Present Illness Date Patient Seen: 01/06/24 Time Patient Seen: 11:03 Chief complaint: RT leg abcess Narrative: Doing well postop day 1. No fevers or chills. States did not get much sleep last night. Resting in the bedside chair splint and dressing in place. at bedside. Has been on vancomycin IV Discharge Providers Provider Date of admission: 01/05/24 10:35 Discharge Date: 01/06/24 Primary care physician: Chan Sheffield MD Consults: 01/05/24 19:08 Consult to Discharge Planning Routine Comment: Consult to Occupational Therapy Evaluate & Treat Comment: Physician Instructions: Evaluate and treat Consult to Physical Therapy Evaluate & Treat Comment: Physician Instructions: Evaluate and Treat Discharge provider: Renetta Salinas MD Summary Hospital Course Discharge Diagnosis: 1. Right leg abscess 2. Distal tibia fracture, right [place] fragment Hospital Course: Patient was admitted for worsening abscess right calf and failure of previous oral and IV antibiotics. He underwent a surgical drainage and debridement of the right upper calf abscess. Cultures were sent. They have not returned yet however the patient had been on antibiotics but there was obvious purulence in the abscess cavity. This was debrided thoroughly and packed and partially closed. He underwent a removal of the packing today no additional purulence was encountered. Two of the sutures were removed several remain proximally. Steri-Strips were applied and a sterile clean dressing was applied. Patient tolerated the procedure with 1.5 mg of IV Dilaudid. Discussed that finalized cultures we will take several days bacterial PCR can take up to 5 days. Localized appearance of the calf abscess was thoroughly debrided. Feel it is appropriate for discharge on oral antibiotics. We will do Bactrim DS to cover for MRSA. Discussed he may require antibiotic change as cultures return however does not require prolonged hospitalization at this point. We will be toe-touch weight-bearing with a walker or crutches for the nondisplaced ankle fracture. We will do dressing changes once a day or more often if required to the calf surgical site. This does look markedly improved after the drainage with the area now flattened and no expanding erythema. Status at Discharge Cognitive/behavioral status at discharge: at baseline, oriented Functional status at discharge: uses cane/walker Overall status at discharge: patient is progressing back to baseline Time Spent with Patient Time spent: Greater than 30 minutes Exam Vital Signs (past 8 hours): - 01/06/24 04:31 01/06/24 07:00 01/06/24 08:03 Temperature 97.9 F 98.0 F Pulse Rate 78 82 Respiratory Rate 18 18 Blood Pressure 132/76 139/63 Pulse Oximetry 98 100 Oxygen Delivery Method Room Air Oxygen Flow Rate 0 Oxygen Delivery Method Room Air Oxygen Flow Rate 0 Narrative Exam Narrative: Alert oriented no acute distress sitting at bedside chair. Respirations unlabored on room air Proximal part of the dressing and wrapped at the knee. They note that some of the dressing it is stuck to an abrasion of the lateral knee this is fine to remain open now to reschedule over. Right medial calf incision and drainage site with sutures proximally and packing exposed distally area is flattened decreased induration swelling compared to preoperative appearance this is improved. There is no effusion of the knee. No Ascending cellulitis. The incision was prepped with chlorhexidine. Patient received 1/2 mg of Dilaudid IV and packing was removed. There was some resistance to removal so the the 2 distal sutures were clipped and packing was removed. Steri-Strips were applied. And a dressing was applied with gauze an ABD pad Kerlix wrap and an Edwin wrap. Objective Labs 01/06/24 04:13 01/06/24 04:13 Labs: Laboratory Results - last 24 hr 01/05/24 01/06/24 13:45 04:13 WBC 3.7 L RBC 2.92 L Hgb 9.5 L Hct 26.7 L MCV 91.2 MCH 32.4 MCHC 35.5 RDW 14.9 H Plt Count 113 L Neut % (Auto) 45.3 L Lymph % (Auto) 37.8 [place] % (Auto) 12.4 Eos % (Auto) 4.3 H Baso % (Auto) 0.2 Neut # (Auto) 1700 Lymph # (Auto) 1400 [place] # (Auto) 500 Eos # (Auto) 200 Baso # (Auto) 0 Sodium 137 Potassium 4.1 Chloride 108 H Carbon Dioxide 26 BUN 16 Creatinine 0.79 Estimated GFR > 60 BUN/Creatinine Ratio 20.3 Glucose 85 Calcium 7.8 L Nasal Screen MRSA (PCR) Not detected [facility] Medical History BPH (benign prostatic hyperplasia) Hernia, inguinal, right Thrombocytopenia Cerebellar ataxia Vertigo Hyperlipidemia Hypertension Hypoglycemia GERD (gastroesophageal reflux disease) Diverticulosis Gout Surgical History S/P hernia surgery S/P hernia surgery (~2019) History of surgery (12/23/17) Hx of bilateral cataract extraction (~2016) Hx of knee surgery (02/07/17) Family History Mother Hypertension Sister Hypertension Brother Hypertension Social History household members: none occupational status: previously employed Smoking Status: Never smoker alcohol intake: never substance use type: does not use Discharge Assessment & Plan Assessment and Plan Assessment: Right leg abscess status post I&D. Packing removed. We will do dressing changes at home. Cultures pending. Do empiric Bactrim. Follow up in orthopedic clinic for wound check in 1 week. Right distal tibia fracture nondisplaced. Toe-touch weight-bearing and stirrup splint with crutches or walker. Prescription for walker. As per walker training with PT prior to discharge Prescription for Bactrim Prescription for oxycodone for pain management Prescription for Zofran for nausea Follow up in Orthopedic Clinic with Dr. Salinas in 1 week for wound check Aspirin 325 mg daily for DVT prophylaxis or the equivalent of 4 baby aspirin daily. If utilizing baby aspirin instead of a regular aspirin Can be taken all at once or 2 in the morning 2 in the evening. Plan of Treatment: See above Discharge Plan Discharge Plan Patient Disposition: Home Discharge orders & Medications Prescriptions: New sulfamethoxazole-trimethoprim [Bactrim DS] 800-160 mg tablet 1 tab PO Q12H Qty: 28 0RF oxycodone 5 mg tablet 5 mg PO Q4H PRN (Reason: pain) Qty: 30 0RF Rx Instructions: postop exempt ondansetron 4 mg tablet,disintegrating 4 mg PO Q8H PRN (Reason: nausea and vomiting) Qty: 5 1RF (DME) walker Misc See Rx Instructions .Route Qty: 1 0RF Rx Instructions: As directed Continued tadalafil [Cialis] 10 mg tablet 10 mg PO DAILY Qty: 90 3RF omega-3 fatty acids [Fish Oil Concentrate] 1,000 mg capsule 1,000 mg PO DAILY atenolol 25 mg tablet 37.5 mg PO DAILY Qty: 135 3RF multivitamin capsule 1 cap PO DAILY divalproex [Depakote] 250 mg tablet,delayed release (DR/EC) 250 mg PO BEDTIME duloxetine 20 mg capsule,delayed release(DR/EC) 40 mg PO DAILY ibuprofen 600 mg tablet 600 mg PO Q6H Qty: 20 0RF Rx Instructions: alternate with tylenol. Discontinued aspirin [Adult Aspirin Regimen] 81 mg tablet,delayed release (DR/EC) 81 mg PO DAILY cephalexin 500 mg capsule 500 mg PO QID Qty: 20 0RF doxycycline hyclate 100 mg capsule 100 mg PO BID Qty: 10 0RF oxycodone-acetaminophen 5-325 mg tablet 1 tab PO Q6H PRN (Reason: pain) Qty: 20 0RF Follow up/Referrals: Chan Sheffield MD [Primary Care Provider] - Diet/Activity/Treatments Diet: Diet as Tolerated Activity: TTWB RLE with walker/crutches Other treatments: At-Home Instructions - Dr. Salinas Surgery: Abscess drainage right leg, right tibia fracture nondisplaced, distal Cast/Splint/Dressing Care Instructions 1) Keep splint/dressing clean and dry. 2) May bathe - but splint/dressing must remain dry. Splint may be readjusted and dressing changes needed. Plan for dressing changes once daily. 3) Should the splint become wet, can change and dry out and replace. 4) Do not stick any sharp object down the cast to itch, as this can cause scrapes/cuts/punctures which can lead to infection. 5) Observe for increasing pain in the extremity with the cast, finger/toe-tips turning blue/purple, or numbness and tingling in your toes/fingers. Should any of these symptoms arise, you need to be seen immediately for evaluation of swelling and increasing compartment pressures within your affected extremity. One dressing changes keep an eye on the wound let your physician's office know if there is increased swelling redness 6) You may ice your extremity, being careful to prevent melting ice from saturating into the splint/cast. Activity No heavy lifting greater than 10 [address] while on narcotic pain medication. Do not get your dressing/cast/splint wet You must remain non-weight bearing for touchdown for balance on your operative extremity. Use crutches or a walker for ambulation. No driving until you are otherwise instructed by your physician. This will be addressed at your first follow-up appointment. Discharge Pain Medications You will be given a prescription for pain medication. You should start taking this the same day after your surgery. Wean off as tolerated. Do not wait to take the pain medication until the pain is severe, as it will be difficult to catch up once this occurs. The pain medication usually reaches its full effect ~1 hour after ingesting. If you have been sent home on Colace, this medication should be taken until you are off all narcotic (i.e. Vicodin, Percocet, Oxycodone, etc) pain medications, to prevent constipation. You may also obtain this or another stool softener over the counter to prevent or alleviate constipation. Percocet or Vicodin have Tylenol in their ingredient lists. You must be careful not to exceed 3,000mg (3 grams) of Tylenol, from all sources, within a single 24-hr period. This means that you may not take more than 10 pills within a 24-hr period. Do NOT take Regular or Extra Strength Tylenol when taking your Percocet or Vicodin medications. -IF you have been given a Toradol/ketorolac prescription, this is a very strong anti-inflammatory. Do not take jgmb-sfr-ofjcklg anti-inflammatories (ibuprofen, Aleve, Advil, Motrin) while taking the Toradol/ketorolac. Once you are finished with this prescription, then you can resume ivgg-rzy-vfhokyq anti-inflammatories. You can still take your narcotic pain medication and Tylenol while taking the Toradol/ketorolac. -Some common side effects of the narcotic pain medications (Percocet, Oxycodone, Vicodin, etc.) include nausea and itching. Benadryl is a great over the counter medication that helps calm your stomach, decreases your anxiety levels, and minimizes the itching. You can easily purchase this at your local pharmacy as an ckhu-lcq-gazfhrj medication. Please abide by the instructions as printed on the bottle. If your nausea persists, make sure to take small amounts of crackers or other payroll and benefits specialist foods. -If have been given oxycodone 5 mg tablets, try to take the smallest dose needed to control your pain. Generally start with 5 mg every 4 hours as needed for pain. However you can increase this if you are having significant pain. The maximum dosage for oxycodone would be 15 mg or three (5 mg) tablets p.o. every 3 hours as needed for pain. As soon as pain is better controlled you should decrease the amount of medication your taking and increase the interval between doses. If you are given Percocet or Vicodin or [place] these are medications with the narcotic and Tylenol in them and they were dosing will need to keep in mind the maximum daily dosages for Tylenol/acetaminophen. You have been sent with an antibiotic called BactPrized. You will take this twice daily for 14 days. Your cultures come back with an organism that requires antibiotic change we will let you know. Follow-Up/Emergency Contacts Please call for an appointment in either [place] or [place], if one has not been scheduled. Follow up 1 week after surgery. [phone] Contact the office if you have any of the following: ? Painful swelling or numbness ? Unrelenting pain ? Fever (over 101?- it is normal to have a low grade fever for the first day or two following surgery) or chills ? Redness around the incisions ? Color changes ? Continuous bleeding or drainage from the incision (a small amount is expected) ? Excessive nausea or vomiting ? Difficulty breathing If you have an emergency that requires immediate attention such as shortness of breath or chest pain, call 911 or proceed to the nearest emergency room. Blood Clot Prophylaxis You will need to complete a total 6-week (42 days) course of Aspirin enteric coated (325 mg daily) after surgery, to minimize the risk of blood clots following surgery. You may alternatively purchase or use zrdt-xwi-midkwla generic equivalent Aspirin. If you already have ?baby? Aspirin (81mg) at home, you can take 4 ?baby? Aspirin (daily) to total 324mg for the equivalent dose. If you have gastric upset with this or a history of gastric bleeding or ulcers, do not take aspirin, please call the office for alternatives. Commence foot and ankle. knee pumps and movement with the nonoperative leg to keep your blood moving and help prevent clots. You can also obtain compression socks of antiembolism hose (CARMELA) hose from the drug store to wear on the nonoperative leg and also on the operative leg once the splint or cast is removed. Adjust your position or get up onto your crutches every hour or so just to move around. Pain Medications: It is the policy of [facility] that narcotic medications will only be refilled during office hours. Additionally, due to the alarming rate of narcotic pain medication abuse/dependence, it has become necessary for physician practices to closely manage patient use of prescription narcotic pain relievers, such as Vicodin ([place]), Percocet, and Oxycodone products. Narcotic pain management in the postoperative period may not exceed 6 weeks. If narcotic pain management is required beyond 90 days, then a referral to a Chronic Pain Specialist will be made. If a request for a medication prescription has been made, the physician must review your chart prior to authorizing the request. Please be patient with office staff. If you call during patient hours, your call may not be returned until the end of the day. Dr. Renetta Salinas [address] [email or web address] Skin/Wound/Dressing Care Report to your healthcare provider any signs of infection, such as:: chills, fever, night sweats, increased pain, unusual drainage and unusual redness Dressing: dressing changes to right medial calf once daily-- may do this more often if needed---clean gauze and gauze wrap, ok to use nonadherent dressings as well. may replace steri strips if needed, some drainage is expected. ok to cleanse area with 50/50 saline/and hydrogen peroxide or other antiseptic Visit Report/Discharge Packet Instructions: DI for Prescription Opioid Use, DI for Incision and Drainage Stand Alone Forms: Patient Portal/API, Stroke Signs & Symptoms Discharge Data Primary Care Provider: Chan Sheffield VTE Deep Vein Thrombosis/Pulmonary Embolism Present on Admission: No
--- NOTE | 2024-01-06 11:37 | CM.DANOTE ---
DCP Assessment Note Pt is a 73yo M here for right leg abscess with Dr. Salinas on 01.05.24. Pt is a readmit, originally here 01/01/24-01/03/24 with the plan to dc home and then return fro right leg abscess. PCP Yohannes [place] [employer] BARTENDER SERVER reviewed EMR. Per chart review, Dr. Salinas cleared for dc today. Per RN, pt was asking for a walker for home use BARTENDER SERVER met with pt briefly in room, accompanied by friend. Report being interested in home walker. BARTENDER SERVER placed order, PT brought walker, and then pt found out he could borrow walker from friend. BARTENDER SERVER returned walker to therapy room. RN kindly agreed to assist and cancel order for walker. Pt and friend deny any other CM needs. Pt eager to leave hospital. P: home with friend today. Will borrow walker from other friend/neighbor. No identified CM needs at this time. CM team will follow as needed SOAN Amado Discharge Planning/Care Management CM Discharge Assessment Start: 01/06/24 11:32 Freq: Status: Active Protocol: Document 01/06/24 11:32 (Rec: 01/06/24 11:36 [id number]) Discharge Planning Assessment Assigned [employer] Worker SONA Plascencia DPOA/Assigned Designee Name Felicia Travis Contact Information [phone] Advance Directives? Yes: POLST Advance Directives on File No History Provided By Patient Has Patient been admitted in last 30 Yes days? Prior Living Arrangements House Household Members none Independent with ADL's Yes Is patient alert and oriented? Yes DME Already Rented / Owned FWW / Walker,Crutches Comment originally requested a walker for home use. Found out later could borrow walker from friend. Barriers to Discharge No Discharge Plan Home Transportation Arrangement friend in POV Referrals Initiated None needed Whiteboard Updated in Patient Room with No name and ext. # of Quarry Ext[employer] Worker Review Status In Process Please Provide Date Initial DC 01/06/24 Assessment Was Performed Next Review Type Continued Stay Review
== END 2024-01-06 11:56 | disposition home or self-care (01) ==
PROVIDERS: Admitting Provider Orthopaedic Surgery Foot and Ankle Surgery; Family Provider Family Medicine; PCP Family Medicine; Referring Provider Orthopaedic Surgery Foot and Ankle Surgery; Visit Provider Orthopaedic Surgery Foot and Ankle Surgery
PROC: (CPT 27603; principal; 2024-01-05 17:45)
DX: L02.419 Cutaneous abscess of limb, unspecified (principal); S82.874A Nondisplaced pilon fracture of right tibia, initial encounter for closed fracture; S82.831A Other fracture of upper and lower end of right fibula, initial encounter for closed fracture; S87.81XA Crushing injury of right lower leg, initial encounter; V28.49XA Other motorcycle driver injured in noncollision transport accident in traffic accident, initial encounter
CPT/HCPCS: 27603; 27824; 36415; 80048; 85025; 87070; 87075; 87205; 87797; 87801; 96365; 96366; 96372; 96375; 96376; 97116; 97161; G0378; G0379; J0171; J0690; J1170; J1644; J2405; J2704; J3010

== ENCOUNTER → 2024-11-22 16:27 | Outpatient (CLI) | payer MEDICARE, OTHER, SELFPAY ==
[2024-01-05 16:07] VITALS: BMI 26.6
[2024-11-22 17:00] LABS: Add Manual Diff / Slide Review NO; Basophils Absolute Auto 0 /uL (0-100); Basophils Percent Auto 0.4 % (0-2); Eosinophils Absolute Auto 200 /uL (0-450); Eosinophils Percent Auto 5.1 % (2-4); Hematocrit 36.6 % (41-53); Hemoglobin 12.5 g/dL (13.5-17.5); Lymphocytes Absolute Auto 1700 /uL (1100-4500); Lymphocytes Percent Auto 37.3 % (25-40); Mean Corpuscular HGB Conc 34.2 % (30-36); Mean Corpuscular Hemoglobin 32.6 PG (26-34); Mean Corpuscular Volume 95.1 fL (80-100); Monocytes Absolute Auto 600 /uL (0-900); Monocytes Percent Auto 12.5 % (3-14); Neutrophils Absolute Auto 2000 /uL (1500-7000); Neutrophils Percent Auto 44.7 % (50-75); Platelet Count 86 X10^3/uL (150-400); Red Blood Cell Count 3.85 X10^6/uL (4.5-5.9); Red Cell Distribution Width 15.1 % (11.6-14.8); White Blood Cell Count 4.5 X10^3/uL (4.5-11.0)
[2024-11-22 17:20] LABS: Alanine Aminotransferase 19 IU/L (<50); Albumin 4.1 g/dL (3.5-5.0); Albumin Globulin Ratio 2.3 (1.0-2.8); Alkaline Phosphatase 58 U/L (38-126); Aspartate Aminotransferase 33 IU/L (17-59); BUN Creatinine Ratio 19.4 (6-22); Bilirubin Total 0.9 mg/dL (0.2-1.3); Blood Urea Nitrogen 18 mg/dL (9-20); Carbon Dioxide 28 mmol/L (22-32); Chloride 105 mmol/L (98-107); Cholesterol 118 mg/dL (140-199); Estimated Glomerular Filt Rate > 60 mL/min (>60); Globulin 1.8 g/dL (1.7-4.1); Glucose 75 mg/dL (70-99); HDL Cholesterol 40 mg/dL (40-60); HEMOLYSIS < 15 (0-50); LDL Cholesterol Calculated 51 mg/dL (<100); Potassium 3.9 mmol/L (3.4-5.1); Sodium 140 mmol/L (137-145); Total Protein 5.9 g/dL (6.3-8.2); Triglycerides 135 mg/dL (35-150)
[2024-11-22 17:49] LABS: Prostate Specific Antigen Scrn 0.361 ng/mL (0.1-4.0)
== END ==
PROVIDERS: Family Provider Family Medicine; PCP Family Medicine; Referring Provider Family Medicine; Visit Provider Family Medicine
DX: Z12.5 Encounter for screening for malignant neoplasm of prostate (principal); E78.5 Hyperlipidemia, unspecified; D69.6 Thrombocytopenia, unspecified; I10 Essential (primary) hypertension
CPT/HCPCS: 36415; 80053; 80061; 84443; 85025; G0103

== ENCOUNTER → 2025-03-19 07:46 | Outpatient (CLI) | payer MEDICARE, OTHER, SELFPAY ==
[2024-01-05 16:07] VITALS: BMI 26.6
--- NOTE | 2025-03-19 07:48 | DI.US.S_ITS ---
PROCEDURE: US HERNIA INDICATIONS: right inguinal hernia TECHNIQUE: Real-time focused scanning was performed of the inguinal region, with image documentation. COMPARISON: None. FINDINGS: There is fat herniating through the inguinal canal during Valsalva maneuver. 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 Shadowing from prior mesh repair is noted in the inguinal region, but separate from the hernia neck. IMPRESSION: Probable, fat containing, reducible inguinal hernia post prior mesh repair. If surgical intervention is planned, recommend CT of the pelvis during Valsalva maneuver for more anatomic detail. Dictated by: Marlene Arceo M.D. on 03/19/2025 at 17:56 Approved by: Marlene Arceo M.D. on 03/19/2025 at 17:59
== END ==
PROVIDERS: Family Provider Family Medicine; PCP Family Medicine; Referring Provider Family Medicine; Visit Provider Family Medicine
DX: K40.91 Unilateral inguinal hernia, without obstruction or gangrene, recurrent (principal)
CPT/HCPCS: 76705